=== PATIENT | female | born 1965 | race Caucasian/White ===

== ENCOUNTER → 2017-08-26 | Outpatient (REF) | payer OTHER ==
[2017-08-26 13:56] LABS: ALBUMIN 3.9 GM/DL (3.2-5.2); ALBUMIN/GLOBULIN RATIO 1.22 (1.00-1.93); ALKALINE PHOSPHATASE 131 U/L (45-117); ALT/SGPT 25 U/L (12-78); ANION GAP 14 MEQ/L (8-16); AST/SGOT 15 U/L (7-37); BILIRUBIN,TOTAL 0.6 MG/DL (0.2-1.0); BLOOD UREA NITROGEN 15 MG/DL (7-18); CALCIUM LEVEL 9.3 MG/DL (8.5-10.1); CARBON DIOXIDE LEVEL 24 MEQ/L (21-32); CHLORIDE LEVEL 103 MEQ/L (98-107); CHOLESTEROL LEVEL 141 MG/DL (<200); CREATININE FOR GFR 0.79 MG/DL (0.55-1.02); GLOMERULAR FILTRATION RATE > 60.0 (>51); GLUCOSE, FASTING 130 MG/DL (70-105); POTASSIUM SERUM 4.1 MEQ/L (3.5-5.1); SODIUM LEVEL 141 MEQ/L (136-145); TOTAL PROTEIN 7.1 GM/DL (6.4-8.2); TRIGLYCERIDES LEVEL 225 MG/DL (<150)
== END ==
LOC: M LAB REF 13:04
PROVIDERS: ATTEND Family Medicine Addiction Medicine
DX: E11.65 Type 2 diabetes mellitus with hyperglycemia (principal)

== ENCOUNTER → 2017-11-25 | Outpatient (CLI) | payer OTHER ==
[2017-11-25 10:10] LABS: ALBUMIN 3.9 GM/DL (3.2-5.2); ALBUMIN/GLOBULIN RATIO 1.56 (1.00-1.93); ALKALINE PHOSPHATASE 123 U/L (45-117); ALT/SGPT 29 U/L (12-78); ANION GAP 9 MEQ/L (8-16); AST/SGOT 16 U/L (7-37); BILIRUBIN,TOTAL 0.3 MG/DL (0.2-1.0); BLOOD UREA NITROGEN 12 MG/DL (7-18); CALCIUM LEVEL 8.4 MG/DL (8.5-10.1); CARBON DIOXIDE LEVEL 27 MEQ/L (21-32); CHLORIDE LEVEL 106 MEQ/L (98-107); CHOLESTEROL LEVEL 143 MG/DL (<200); CHOLESTEROL RISK RATIO 3.575 (<5); CREATININE FOR GFR 0.84 MG/DL (0.55-1.30); GLOMERULAR FILTRATION RATE > 60.0 (>51); GLUCOSE, FASTING 109 MG/DL (70-100); HDL CHOLESTEROL 40 MG/DL (>40); LDL CHOLESTEROL 51.8 MG/DL (<100); NON-HDL-C 103 MG/DL; SODIUM LEVEL 142 MEQ/L (136-145); TOTAL PROTEIN 6.4 GM/DL (6.4-8.2); TRIGLYCERIDES LEVEL 256 MG/DL (<150)
[2017-11-25 10:26] LABS: ESTIMATED AVERAGE GLUCOSE 166 MG/DL (60-110); HEMOGLOBIN A1c 7.4 %
== END ==
LOC: M LAB 08:53
DX: E11.65 Type 2 diabetes mellitus with hyperglycemia (principal)
CPT/HCPCS: 84443

== ENCOUNTER → 2018-01-01 | Outpatient (CLI) | payer OTHER | LOC: M RAD 08:35 | DX: M25.562 Pain in left knee (principal) | CPT/HCPCS: 73564 ==

== ENCOUNTER → 2018-04-07 | Outpatient (REF) | payer OTHER, MEDICAID ==
[2018-04-08 14:58] LABS: H. PYLORI BREATH TEST Positive (Negative)
== END ==
LOC: M LAB REF 13:17
DX: K21.9 Gastro-esophageal reflux disease without esophagitis (principal)
CPT/HCPCS: 83013

== ENCOUNTER 2018-04-17 12:33 | Outpatient (RCR) | payer OTHER | END 2018-04-28 | LOC: M PT 12:33 | DX: Z47.89 Encounter for other orthopedic aftercare (principal); M17.0 Bilateral primary osteoarthritis of knee | CPT/HCPCS: 97010 ==

== ENCOUNTER 2018-06-29 10:12 | Day surgery (SDC) | payer OTHER ==
[~2018-06-29 10:12] MED LIST: LR 1,000 ML IV
[2018-06-29] MEDS ORDERED: PROPOFOL 200 MG/20 ML VIAL As Ordered (11:13)
[2018-06-29] MEDS ORDERED: MIDAZOLAM INJ 2 MG/2 ML VIAL (J2250) As Ordered ×2 (11:13→11:35)
[2018-06-29] MEDS ORDERED: fentaNYL 100 MCG/2 ML INJECTION (J3010) As Ordered (11:14)
[2018-06-29 11:16] LABS: BEDSIDE GLUCOSE 170 MG/DL (70-105)
[2018-06-29] MEDS: LIDOCAINE W/EPINEPHRINE 1% 20ML VIAL As Ordered (11:45)
[2018-06-29] MEDS ORDERED: PERCOCET 5MG/325MG TAB PO (12:15)
[2018-06-29] MEDS ORDERED: NORCO, ANEXSIA 5/325MG TABLET (HYDROcodone/ACETAMINOPHEN) PO (12:15)
[2018-06-29] MEDS ORDERED: ONDANSETRON 4MG/2ML VIAL (J2405) IV (12:15)
[2018-06-29] MEDS ORDERED: LR 1,000 ML IV (12:15)
== END 2018-06-29 12:54 | disposition home or self-care (01) ==
LOC: M SDC 10:12
DX: L72.3 Sebaceous cyst (principal); I25.10 Atherosclerotic heart disease of native coronary artery without angina pectoris; I25.2 Old myocardial infarction; E11.9 Type 2 diabetes mellitus without complications; I10 Essential (primary) hypertension; E78.00 Pure hypercholesterolemia, unspecified; Z79.4 Long term (current) use of insulin; Z79.899 Other long term (current) drug therapy; F41.9 Anxiety disorder, unspecified; F32.9 Major depressive disorder, single episode, unspecified; F17.210 Nicotine dependence, cigarettes, uncomplicated
CPT/HCPCS: 11401

== ENCOUNTER 2018-08-30 16:06 | Emergency (ER) | payer OTHER ==
[2018-08-30] MEDS: NORCO, ANEXSIA 5/325MG TABLET (HYDROcodone/ACETAMINOPHEN) PO (16:35)
== END 2018-08-30 17:21 | disposition home or self-care (01) ==
LOC: M ED 16:06
DX: S86.911A Strain of unspecified muscle(s) and tendon(s) at lower leg level, right leg, initial encounter (principal); S76.211A Strain of adductor muscle, fascia and tendon of right thigh, initial encounter; M25.461 Effusion, right knee; W01.0XXA Fall on same level from slipping, tripping and stumbling without subsequent striking against object, initial encounter; Y92.410 Unspecified street and highway as the place of occurrence of the external cause; I10 Essential (primary) hypertension; E11.9 Type 2 diabetes mellitus without complications; F17.200 Nicotine dependence, unspecified, uncomplicated; Z79.899 Other long term (current) drug therapy; Z79.02 Long term (current) use of antithrombotics/antiplatelets; Z79.4 Long term (current) use of insulin
CPT/HCPCS: 73552

== ENCOUNTER → 2018-10-06 | Outpatient (REF) | payer OTHER ==
[~2018-10-06] MED LIST changes: +ATOR80TA59 PO; +BASA100I SQ; +CLOP75TA2 PO; +FURO40TA2 PO; +GABA-843 PO; -LR 1,000 ML IV; +METF10004 PO; +METO50TA7 PO; +NAPR-885 PO; +NORCOTAB PO; +POTA20TA6 PO
[2018-10-06 20:50] LABS: ALBUMIN 3.9 GM/DL (3.2-5.2); ALT/SGPT 43 U/L (12-78); BILIRUBIN,TOTAL 0.4 MG/DL (0.2-1.0); BLOOD UREA NITROGEN 7 MG/DL (7-18); CALCIUM LEVEL 8.8 MG/DL (8.5-10.1); CARBON DIOXIDE LEVEL 28 MEQ/L (21-32); CHLORIDE LEVEL 101 MEQ/L (98-107); CHOLESTEROL LEVEL 158 MG/DL (<200); CREATININE FOR GFR 0.94 MG/DL (0.55-1.30); GLOMERULAR FILTRATION RATE > 60.0 (>51); GLUCOSE, FASTING 245 MG/DL (70-100); HDL CHOLESTEROL 37 MG/DL (>40); LDL CHOLESTEROL 73 MG/DL (<100); NON-HDL-C 121 MG/DL; POTASSIUM SERUM 3.8 MEQ/L (3.5-5.1); SODIUM LEVEL 137 MEQ/L (136-145); THYROID STIMULATING HORMONE 0.994 uIU/ML (0.358-3.740); TOTAL PROTEIN 6.6 GM/DL (6.4-8.2); TRIGLYCERIDES LEVEL 239 MG/DL (<150)
[2018-10-06 21:02] LABS: BASO # 0.1 10^3/uL (0.0-0.2); BASO % 0.7 % (0.0-1.0); EOS # 0.5 10^3/uL (0.0-0.50); EOS % 4.6 % (0.0-3.0); HEMATOCRIT 41.9 % (36.0-47.0); HEMOGLOBIN 13.9 g/dl (12.0-15.5); LYMPH # 3.2 10^3/uL (1.5-4.5); LYMPH % 27.4 % (24.0-44.0); MEAN CORPUSCULAR HEMOGLOBIN 27.7 pg (27.0-33.0); MEAN CORPUSCULAR HGB CONC 33.2 g/dl (32.0-36.5); MEAN CORPUSCULAR VOLUME 83.5 fl (80.0-96.0); MONO # 0.5 10^3/uL (0.0-0.8); MONO % 4.7 % (0.0-5.0); NEUTROPHILS # 7.2 10^3/uL (1.8-7.7); NEUTROPHILS % 62.3 % (36.0-66.0); PLATELET COUNT, AUTOMATED 242 10^3/uL (150-450); RED BLOOD COUNT 5.02 10^6/uL (4.00-5.40); WHITE BLOOD COUNT 11.5 10^3/uL (4.0-10.0)
[2018-10-06 21:35] LABS: HEMOGLOBIN A1c 8.9 %
== END ==
LOC: M LAB REF 18:40
PROVIDERS: ATTEND Nurse Practitioner Family
DX: I25.118 Atherosclerotic heart disease of native coronary artery with other forms of angina pectoris (principal)

== ENCOUNTER 2018-11-29 13:56 | Emergency (ER) | payer OTHER ==
[~2018-11-29] VITALS: Ht 162.6 cm; Wt 102.3 kg
[2018-11-29] MEDS ORDERED: ONDANSETRON 4 MG ORAL DISINTEGRATING TAB (Q0162 PER 1MG) PO ONE (14:45)
[2018-11-29] MEDS ORDERED: IPRATROPIUM 0.5MG/ALBUTEROL 2.5MG INH SOL UD 3ML (DUONEB)(J7620) NEB ONE (14:45)
[2018-11-29] MEDS ORDERED: ACETAMINOPHEN 325 MG TAB PO ONE (14:45)
[2018-11-29 14:51] LABS: INFLUENZA A AMPLIFICATION POSITIVE (NEGATIVE); INFLUENZA B AMPLIFICATION NEGATIVE (NEGATIVE)
[2018-11-29] MEDS ORDERED: OSELTAMIVIR PHOSPHATE 75 MG CAP (TAMIFLU) PO ONE (15:00)
--- NOTE | 2018-11-29 15:22 | REP ---
Clinical: Cough and shortness of breath . Comparison: None . Technique: PA and lateral. Findings: The mediastinum and cardiac silhouette are normal. Evidence of prior sternotomy and CABG. The lung cabello are clear and without acute consolidation, effusion, or pneumothorax. The skeletal structures are intact and normal. Impression: 1. No acute cardiopulmonary process. Electronically Signed by Levon Clarke MD 11/29/2018 03:13 P
[2018-11-29] MEDS ORDERED: VENTAER INH (15:35)
[2018-11-29] MEDS ORDERED: IBUP-1022 PO (15:35)
[2018-11-29] MEDS ORDERED: OSEL75CA PO (15:35)
[2018-11-29 15:46] VITALS: BP 124/66
[2018-11-29] MEDS ORDERED: IBUPROFEN 800 MG TAB PO ONE (16:00)
== END 2018-11-29 16:04 | disposition home or self-care (01) ==
LOC: M ED 13:56
DX: J09.X2 Influenza due to identified novel influenza A virus with other respiratory manifestations (principal); E11.9 Type 2 diabetes mellitus without complications; I10 Essential (primary) hypertension; I25.10 Atherosclerotic heart disease of native coronary artery without angina pectoris; I25.2 Old myocardial infarction; Z95.1 Presence of aortocoronary bypass graft; Z79.899 Other long term (current) drug therapy; Z79.84 Long term (current) use of oral hypoglycemic drugs; F17.210 Nicotine dependence, cigarettes, uncomplicated
CPT/HCPCS: 71046; 87502; 94640; 99284; Q0162

== ENCOUNTER → 2019-02-02 | Outpatient (REF) | payer OTHER ==
[~2019-02-02] MED LIST changes: +HYDR-3715 PO; +IBUP-1022 PO; -NORCOTAB PO; +OSEL75CA PO; +VENTAER INH
[2019-02-02 14:19] LABS: BASO % 0.4 % (0.0-1.0); EOS # 0.4 10^3/uL (0.0-0.50); EOS % 5.4 % (0.0-3.0); HEMATOCRIT 40.2 % (36.0-47.0); HEMOGLOBIN 13.2 g/dl (12.0-15.5); LYMPH % 29.6 % (24.0-44.0); MEAN CORPUSCULAR HEMOGLOBIN 28.1 pg (27.0-33.0); MEAN CORPUSCULAR HGB CONC 32.8 g/dl (32.0-36.5); MEAN CORPUSCULAR VOLUME 85.7 fl (80.0-96.0); MONO # 0.4 10^3/uL (0.0-0.8); MONO % 5.8 % (0.0-5.0); NEUTROPHILS # 4.1 10^3/uL (1.8-7.7); NEUTROPHILS % 58.7 % (36.0-66.0); PLATELET COUNT, AUTOMATED 186 10^3/uL (150-450); RED BLOOD COUNT 4.69 10^6/uL (4.00-5.40); WHITE BLOOD COUNT 6.9 10^3/uL (4.0-10.0)
[2019-02-02 14:58] LABS: ALBUMIN 3.8 GM/DL (3.2-5.2); ALT/SGPT 37 U/L (12-78); BILIRUBIN,TOTAL 0.6 MG/DL (0.2-1.0); BLOOD UREA NITROGEN 11 MG/DL (7-18); CALCIUM LEVEL 8.4 MG/DL (8.5-10.1); CARBON DIOXIDE LEVEL 25 MEQ/L (21-32); CHLORIDE LEVEL 105 MEQ/L (98-107); CHOLESTEROL LEVEL 154 MG/DL (<200); CHOLESTEROL RISK RATIO 4.162 (<5); CREATININE FOR GFR 0.84 MG/DL (0.55-1.30); GLOMERULAR FILTRATION RATE > 60.0 (>51); GLUCOSE, FASTING 197 MG/DL (70-100); HDL CHOLESTEROL 37 MG/DL (>40); HEMOGLOBIN A1c 9.4 %; LDL CHOLESTEROL 66 MG/DL (<100); NON-HDL-C 117 MG/DL; POTASSIUM SERUM 3.7 MEQ/L (3.5-5.1); SODIUM LEVEL 138 MEQ/L (136-145); TOTAL PROTEIN 6.7 GM/DL (6.4-8.2); TRIGLYCERIDES LEVEL 255 MG/DL (<150)
== END ==
LOC: M LAB REF 12:37
PROVIDERS: ATTEND Nurse Practitioner Family
DX: I25.118 Atherosclerotic heart disease of native coronary artery with other forms of angina pectoris (principal); E11.65 Type 2 diabetes mellitus with hyperglycemia; Z13.9 Encounter for screening, unspecified

== ENCOUNTER 2019-04-26 13:58 | Emergency (ER) | payer OTHER ==
[~2019-04-26] VITALS: Ht 162.6 cm; Wt 102.3 kg
[2019-04-26 14:53] LABS: BASO % 0.4 % (0.0-1.0); EOS # 0.4 10^3/uL (0.0-0.50); EOS % 4.1 % (0.0-3.0); HEMATOCRIT 41.6 % (36.0-47.0); HEMOGLOBIN 13.9 g/dl (12.0-15.5); LYMPH # 2.5 10^3/uL (1.5-4.5); LYMPH % 25.8 % (24.0-44.0); MEAN CORPUSCULAR HEMOGLOBIN 27.5 pg (27.0-33.0); MEAN CORPUSCULAR HGB CONC 33.4 g/dl (32.0-36.5); MEAN CORPUSCULAR VOLUME 82.2 fl (80.0-96.0); MONO # 0.5 10^3/uL (0.0-0.8); MONO % 5.6 % (0.0-5.0); NEUTROPHILS # 6.1 10^3/uL (1.8-7.7); NEUTROPHILS % 63.8 % (36.0-66.0); PLATELET COUNT, AUTOMATED 187 10^3/uL (150-450); RED BLOOD COUNT 5.06 10^6/uL (4.00-5.40); WHITE BLOOD COUNT 9.6 10^3/uL (4.0-10.0)
[2019-04-26 15:30] VITALS: BP 103/55
[2019-04-26 15:33] LABS: ALBUMIN 3.7 GM/DL (3.2-5.2); ALT/SGPT 29 U/L (12-78); BILIRUBIN,DIRECT < 0.1 MG/DL (0.0-0.2); BILIRUBIN,TOTAL 0.5 MG/DL (0.2-1.0); BLOOD UREA NITROGEN 16 MG/DL (7-18); CALCIUM LEVEL 9.1 MG/DL (8.5-10.1); CARBON DIOXIDE LEVEL 31 MEQ/L (21-32); CHLORIDE LEVEL 103 MEQ/L (98-107); CREATININE FOR GFR 0.99 MG/DL (0.55-1.30); GLOMERULAR FILTRATION RATE > 60.0 (>51); GLUCOSE, FASTING 169 MG/DL (70-100); LIPASE 164 U/L (73-393); POTASSIUM SERUM 3.5 MEQ/L (3.5-5.1); SODIUM LEVEL 140 MEQ/L (136-145); TOTAL PROTEIN 6.9 GM/DL (6.4-8.2)
[2019-04-26] MEDS ORDERED: DICYCLOMINE INJ 20MG/2ML (J0500) IM ONE (16:00)
--- NOTE | 2019-04-26 16:48 | REP ---
Clinical: Epigastric and abdominal pain. Technique: Upright view of the chest with supine and upright views of the abdomen and pelvis. Findings: Frontal upright view of the chest demonstrates no acute cardiopulmonary process or free air below the diaphragm to suspect pneumoperitoneum. Evidence of prior sternotomy and CABG noted. Supine and upright views of the abdomen and pelvis demonstrate nonspecific bowel gas pattern without obstruction or perforation. No organomegaly. No abnormal calcifications. Impression: Nonspecific bowel gas pattern. Electronically Signed by Levon Clarke MD 04/26/2019 04:39 P
[2019-04-26] MEDS ORDERED: DICY10CA13 PO (16:58)
--- NOTE | 2019-04-26 20:25 | ECGEPIP ---
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
[2019-05-13] MEDS ORDERED: HYDR1TAB33 PO (09:31)
== END 2019-04-26 18:28 | disposition home or self-care (01) ==
LOC: M ED 13:58 → EDBD 13:58 → M ED 18:28
DX: E11.43 Type 2 diabetes mellitus with diabetic autonomic (poly)neuropathy (principal); I10 Essential (primary) hypertension; I25.2 Old myocardial infarction; Z79.899 Other long term (current) drug therapy; Z79.4 Long term (current) use of insulin; F17.210 Nicotine dependence, cigarettes, uncomplicated
CPT/HCPCS: 36415; 74021; 80048; 80076; 83690; 85025; 93005; 96372; 99284; J0500

== ENCOUNTER → 2019-05-10 | Outpatient (REF) | payer OTHER, MEDICAID ==
[~2019-05-10] MED LIST changes: +DICY10CA13 PO; +HYDR1TAB33 PO
[2019-05-10 13:45] LABS: BASO # 0.1 10^3/uL (0.0-0.2); BASO % 0.8 % (0.0-1.0); EOS # 0.5 10^3/uL (0.0-0.50); EOS % 6.1 % (0.0-3.0); HEMATOCRIT 42.9 % (36.0-47.0); HEMOGLOBIN 13.9 g/dl (12.0-15.5); LYMPH # 2.2 10^3/uL (1.5-4.5); LYMPH % 27.8 % (24.0-44.0); MEAN CORPUSCULAR HEMOGLOBIN 27.9 pg (27.0-33.0); MEAN CORPUSCULAR HGB CONC 32.4 g/dl (32.0-36.5); MEAN CORPUSCULAR VOLUME 86.1 fl (80.0-96.0); MONO # 0.5 10^3/uL (0.0-0.8); MONO % 5.8 % (0.0-5.0); NEUTROPHILS # 4.6 10^3/uL (1.8-7.7); NEUTROPHILS % 59.2 % (36.0-66.0); PLATELET COUNT, AUTOMATED 198 10^3/uL (150-450); RED BLOOD COUNT 4.98 10^6/uL (4.00-5.40); WHITE BLOOD COUNT 7.8 10^3/uL (4.0-10.0)
[2019-05-10 14:07] LABS: ALBUMIN 3.9 GM/DL (3.2-5.2); ALT/SGPT 39 U/L (12-78); BILIRUBIN,TOTAL 0.3 MG/DL (0.2-1.0); BLOOD UREA NITROGEN 11 MG/DL (7-18); CARBON DIOXIDE LEVEL 26 MEQ/L (21-32); CHLORIDE LEVEL 107 MEQ/L (98-107); CHOLESTEROL LEVEL 155 MG/DL (<200); CHOLESTEROL RISK RATIO 3.974 (<5); CREATININE FOR GFR 0.88 MG/DL (0.55-1.30); GLOMERULAR FILTRATION RATE > 60.0 (>51); GLUCOSE, FASTING 189 MG/DL (70-100); HDL CHOLESTEROL 39 MG/DL (>40); LDL CHOLESTEROL 69 MG/DL (<100); NON-HDL-C 116 MG/DL; SODIUM LEVEL 141 MEQ/L (136-145); TOTAL PROTEIN 6.7 GM/DL (6.4-8.2); TRIGLYCERIDES LEVEL 233 MG/DL (<150)
== END ==
LOC: M LAB REF 12:36
PROVIDERS: ATTEND Nurse Practitioner Family
DX: I25.118 Atherosclerotic heart disease of native coronary artery with other forms of angina pectoris (principal)

== ENCOUNTER → 2019-09-08 | Outpatient (REF) | payer OTHER, MEDICAID ==
[2019-09-08 18:29] LABS: BASO # 0.1 10^3/uL (0.0-0.2); BASO % 0.7 % (0.0-1.0); EOS # 0.4 10^3/uL (0.0-0.5); EOS % 4.6 % (0.0-3.0); HEMATOCRIT 45.6 % (36.0-47.0); HEMOGLOBIN 14.5 g/dl (12.0-15.5); LYMPH # 2.5 10^3/uL (1.5-5.0); LYMPH % 28.7 % (24.0-44.0); MEAN CORPUSCULAR HEMOGLOBIN 27.1 pg (27.0-33.0); MEAN CORPUSCULAR HGB CONC 31.8 g/dl (32.0-36.5); MEAN CORPUSCULAR VOLUME 85.1 fl (80.0-96.0); MONO # 0.5 10^3/uL (0.0-0.8); NEUTROPHILS # 5.2 10^3/uL (1.5-8.5); NEUTROPHILS % 59.7 % (36.0-66.0); PLATELET COUNT, AUTOMATED 171 10^3/uL (150-450); RED BLOOD COUNT 5.36 10^6/uL (4.00-5.40); WHITE BLOOD COUNT 8.7 10^3/uL (4.0-10.0)
[2019-09-08 18:37] LABS: AMORPHOUS SEDIMENT LARGE (NEGATIVE); APPEARANCE, URINE TURBID (CLEAR); BACTERIA, URINE AUTO 1+ (NEGATIVE); BILIRUBIN, URINE AUTO NEGATIVE (NEGATIVE); BLOOD, URINE BLOOD 1+ (NEGATIVE); COLOR, URINE AMBER (YELLOW); GLUCOSE, URINE (UA) AUTO NEGATIVE (NEGATIVE); KETONE, URINE AUTO TRACE mg/dL (NEGATIVE); LEUKOCYTE ESTERASE, URINE AUTO TRACE (NEGATIVE); MUCUS, URINE SMALL (NEGATIVE); NITRITE, URINE AUTO NEGATIVE (NEGATIVE); PROTEIN, URINE AUTO NEGATIVE (NEGATIVE); RBC, URINE AUTO 2 /HPF (0-3); SPECIFIC GRAVITY URINE AUTO 1.024 (1.002-1.035); SQUAMOUS EPITHELIAL CELL UR AU 34 /HPF (0-6); UROBILINOGEN, URINE AUTO 0.2 mg/dL (0.0-2.0); WBC, URINE AUTO 8 /HPF (0-3)
[2019-09-08 20:04] LABS: BLOOD UREA NITROGEN 11 MG/DL (7-18); CREATININE FOR GFR 0.84 MG/DL (0.55-1.30); GLOMERULAR FILTRATION RATE > 60.0 (>51); GLUCOSE, FASTING 189 MG/DL (70-100)
[2019-09-08 20:05] LABS: ALT/SGPT 46 U/L (12-78); BILIRUBIN,TOTAL 0.5 MG/DL (0.2-1.0); CALCIUM LEVEL 9.3 MG/DL (8.5-10.1); CARBON DIOXIDE LEVEL 25 MEQ/L (21-32); CHLORIDE LEVEL 105 MEQ/L (98-107); CHOLESTEROL LEVEL 162 MG/DL (<200); CHOLESTEROL RISK RATIO 4.764 (<5); HDL CHOLESTEROL 34 MG/DL (>40); NON-HDL-C 128 MG/DL; POTASSIUM SERUM 3.9 MEQ/L (3.5-5.1); SODIUM LEVEL 139 MEQ/L (136-145); TRIGLYCERIDES LEVEL 290 MG/DL (<150)
[2019-09-08 20:06] LABS: TOTAL PROTEIN 6.7 GM/DL (6.4-8.2)
[2019-09-09 03:23] LABS: HEMOGLOBIN A1c 8.4 %
[2019-09-09 11:53] LABS: TOTAL 25(OH) VITAMIN D 28.2 NG/ML (30.0-100.0)
== END ==
LOC: M LAB REF 16:33
PROVIDERS: ATTEND Nurse Practitioner Family
DX: Z13.9 Encounter for screening, unspecified (principal); M25.561 Pain in right knee; M54.89 Other dorsalgia; Z72.0 Tobacco use; E66.09 Other obesity due to excess calories; E11.65 Type 2 diabetes mellitus with hyperglycemia

== ENCOUNTER → 2019-11-12 | Outpatient (REF) | payer OTHER ==
[2019-11-12 17:33] LABS: BLOOD UREA NITROGEN 13 MG/DL (7-18); CALCIUM LEVEL 8.9 MG/DL (8.5-10.1); CARBON DIOXIDE LEVEL 30 MEQ/L (21-32); CHLORIDE LEVEL 104 MEQ/L (98-107); CHOLESTEROL LEVEL 165 MG/DL (<200); GLOMERULAR FILTRATION RATE > 60.0 (>51); GLUCOSE, FASTING 163 MG/DL (70-100); HDL CHOLESTEROL 30 MG/DL (>40); LDL CHOLESTEROL 62 MG/DL (<100); NON-HDL-C 135 MG/DL; POTASSIUM SERUM 3.9 MEQ/L (3.5-5.1); SODIUM LEVEL 140 MEQ/L (136-145); TRIGLYCERIDES LEVEL 366 MG/DL (<150)
[2019-11-12 17:34] LABS: HEMOGLOBIN A1c 7.9 %
[2019-11-12 17:40] LABS: MALB URINE SIEMENS 19.5 MG/L; MAU/CREAT RATIO 8.8 MCG/MG (0.0-30.0)
[2019-11-12 18:48] LABS: HIV 1&2 SCREEN CENTAUR NEGATIVE (NEGATIVE)
[2019-11-15 10:47] LABS: HEPATITIS B SURFACE ANTIBODY NEGATIVE (POSITIVE)
[2019-11-15 11:26] LABS: HEPATITIS C VIRUS ABY INDEX < 0.0 INDEX (<0.8)
== END ==
LOC: M SFHCPLAZ 14:48
DX: Z11.4 Encounter for screening for human immunodeficiency virus [HIV] (principal); Z11.59 Encounter for screening for other viral diseases; E11.40 Type 2 diabetes mellitus with diabetic neuropathy, unspecified; Z95.1 Presence of aortocoronary bypass graft; F17.200 Nicotine dependence, unspecified, uncomplicated

== ENCOUNTER 2019-12-01 09:22 | Day surgery (SDC) | payer MEDICAID, OTHER ==
[~2019-12-01] VITALS: Ht 162.6 cm; Wt 95.3 kg
[~2019-12-01 09:22] MED LIST changes: +ATOR40TA75 PO; +NS 1,000 ML IV ONE
[2019-12-01] MEDS ORDERED: propofoL 200 MG/20 ML VIAL As Ordered ONE ×2 (10:30→11:35)
[2019-12-01] MEDS ORDERED: LIDOCAINE 2% INJ 100 MG/5 ML SDV (FOR ANES.) As Ordered ONE (10:30)
[2019-12-01] MEDS ORDERED: fentaNYL 100 MCG/2 ML INJECTION (J3010) As Ordered ONE (11:01)
--- NOTE | 2019-12-01 11:55 | ROOR ---
Patient Name: Natalie Mazariegos Procedure Date: 12/01/2019 11:12 AM Date of : 1965 Age: 54 Room: [facility] Gender: Female Note Status: Finalized Procedure: Upper GI endoscopy Indications: Suspected gastro-esophageal reflux disease Providers: Jesse Carnes DO Referring MD: Josselyn DOWNEY DO Requesting Provider: Medicines: Propofol per Anesthesia Complications: No immediate complications. Procedure: Pre-Anesthesia Assessment: - Prior to the procedure, a History and Physical was performed, and patient medications and allergies were reviewed. The patient is competent. The risks and benefits of the procedure and the sedation options and risks were discussed with the patient. All questions were answered and informed consent was obtained. Patient identification and proposed procedure were verified by the physician, the nurse, the anesthesiologist and the dental equipment technician in the endoscopy suite. Mental Status Examination: alert and oriented. Airway Examination: normal oropharyngeal airway and neck mobility. Respiratory Examination: clear to auscultation. CV Examination: normal. Prophylactic Antibiotics: The patient does not require prophylactic antibiotics. Prior Anticoagulants: The patient has taken Plavix (clopidogrel), last dose was 5 days prior to procedure. ASA Grade Assessment: III - A patient with severe systemic disease. After reviewing the risks and benefits, the patient was deemed in satisfactory condition to undergo the procedure. The anesthesia plan was to use monitored anesthesia care (MAC). Immediately prior to administration of medications, the patient was re-assessed for adequacy to receive sedatives. The heart rate, respiratory rate, oxygen saturations, blood pressure, adequacy of pulmonary ventilation, and response to care were monitored throughout the procedure. The physical status of the patient was re-assessed after the procedure. The Endoscope was introduced through the mouth, and advanced to the second part of duodenum. The upper GI endoscopy was accomplished without difficulty. The patient tolerated the procedure well. Findings: LA Grade A (one or more mucosal breaks less than 5 mm, not extending between tops of 2 mucosal folds) esophagitis with no bleeding was found. Biopsies were taken with a cold forceps for histology. Estimated blood loss was minimal. Localized mild inflammation characterized by erythema and friability was found at the pylorus. Biopsies were taken with a cold forceps for Helicobacter pylori testing. Estimated blood loss was minimal. Impression: - LA Grade A esophagitis. Biopsied. - Gastritis. Biopsied. Recommendation: - Patient has a contact number available for emergencies. The signs and symptoms of potential delayed complications were discussed with the patient. Return to normal activities tomorrow. Written discharge instructions were provided to the patient. - Return to my office as previously scheduled. - Await pathology results. Jesse Carnes DO 12/01/2019 11:55:26 AM Electronically signed by Jesse Carnes DO Number of Addenda: 0 Note Initiated On: 12/01/2019 11:12 AM Estimated Blood Loss: Estimated blood loss was minimal.
--- NOTE | 2019-12-01 12:01 | ROOR ---
Patient Name: Natalie Mazariegos Procedure Date: 12/01/2019 11:13 AM Date of : 1965 Age: 54 Room: [facility] Gender: Female Note Status: Finalized Procedure: Colonoscopy Indications: High risk colon cancer surveillance: Personal history of colonic polyps Providers: Jesse Carnes DO Referring MD: Josselyn DOWNEY DO Requesting Provider: Medicines: Propofol per Anesthesia Complications: No immediate complications. Procedure: Pre-Anesthesia Assessment: - Prior to the procedure, a History and Physical was performed, and patient medications and allergies were reviewed. The patient is competent. The risks and benefits of the procedure and the sedation options and risks were discussed with the patient. All questions were answered and informed consent was obtained. Patient identification and proposed procedure were verified by the physician, the nurse, the anesthesiologist and the p 3 armament/ordnance ima technician in the endoscopy suite. Mental Status Examination: alert and oriented. Airway Examination: normal oropharyngeal airway and neck mobility. Respiratory Examination: clear to auscultation. CV Examination: normal. Prophylactic Antibiotics: The patient does not require prophylactic antibiotics. Prior Anticoagulants: The patient has taken Plavix (clopidogrel), last dose was 5 days prior to procedure. ASA Grade Assessment: III - A patient with severe systemic disease. After reviewing the risks and benefits, the patient was deemed in satisfactory condition to undergo the procedure. The anesthesia plan was to use monitored anesthesia care (MAC). Immediately prior to administration of medications, the patient was re-assessed for adequacy to receive sedatives. The heart rate, respiratory rate, oxygen saturations, blood pressure, adequacy of pulmonary ventilation, and response to care were monitored throughout the procedure. The physical status of the patient was re-assessed after the procedure. The Colonoscope was introduced through the anus and advanced to the cecum, identified by appendiceal orifice and ileocecal valve. The colonoscopy was performed without difficulty. The patient tolerated the procedure well. Findings: Five hyperplastic polyps were found in the ascending colon and cecum. The polyps were 3 to 9 mm in size. These polyps were removed with a jumbo cold forceps. Resection and retrieval were complete. Estimated blood loss was minimal. Multiple hyperplastic polyps were found in the sigmoid colon. The polyps were 3 to 15 mm in size. These polyps were removed with a hot snare. Resection and retrieval were complete. Estimated blood loss was minimal. The exam was otherwise without abnormality on direct and retroflexion views. Impression: - Five 3 to 9 mm polyps in the ascending colon and in the cecum, removed with a jumbo cold forceps. Resected and retrieved. - Multiple 3 to 15 mm polyps in the sigmoid colon, removed with a hot snare. Resected and retrieved. - The examination was otherwise normal on direct and retroflexion views. Recommendation: - Patient has a contact number available for emergencies. The signs and symptoms of potential delayed complications were discussed with the patient. Return to normal activities tomorrow. Written discharge instructions were provided to the patient. - Repeat colonoscopy in 3 years for surveillance of multiple polyps. - Return to my office as previously scheduled. Jesse Carnes DO 12/01/2019 12:00:54 PM Electronically signed by Jesse Carnes DO Number of Addenda: 0 Note Initiated On: 12/01/2019 11:13 AM Estimated Blood Loss: Estimated blood loss was minimal.
[2019-12-01 12:15] VITALS: BP 165/87
== END 2019-12-01 13:25 | disposition home or self-care (01) ==
LOC: M OPP 09:22
PROVIDERS: ATTEND Surgery
DX: Z12.11 Encounter for screening for malignant neoplasm of colon (principal); Z86.010 Personal history of colon polyps; D12.0 Benign neoplasm of cecum; D12.2 Benign neoplasm of ascending colon; D12.5 Benign neoplasm of sigmoid colon; K21.9 Gastro-esophageal reflux disease without esophagitis; K20.9 Esophagitis, unspecified; K29.70 Gastritis, unspecified, without bleeding
CPT/HCPCS: 43239; 45380; 45385; 88305; J3010

== ENCOUNTER 2020-03-22 22:01 | Emergency (ER) | payer OTHER ==
[~2020-03-22 22:01] MED LIST changes: -NS 1,000 ML IV ONE
[2020-03-22] MEDS ORDERED: ASPIRIN 325 MG TAB PO ONE (22:30)
[2020-03-22 22:55] LABS: BASO # 0.1 10^3/uL (0.0-0.2); BASO % 0.8 % (0.0-1.0); EOS # 0.6 10^3/uL (0.0-0.5); EOS % 6.1 % (0.0-3.0); LYMPH # 3.5 10^3/uL (1.5-5.0); LYMPH % 37.9 % (24.0-44.0); MEAN CORPUSCULAR HEMOGLOBIN 27.4 pg (27.0-33.0); MEAN CORPUSCULAR HGB CONC 32.5 g/dl (32.0-36.5); MEAN CORPUSCULAR VOLUME 84.4 fl (80.0-96.0); MONO # 0.6 10^3/uL (0.0-0.8); MONO % 6.3 % (0.0-5.0); NEUTROPHILS # 4.5 10^3/uL (1.5-8.5); NEUTROPHILS % 48.7 % (36.0-66.0); PLATELET COUNT, AUTOMATED 191 10^3/uL (150-450); RED BLOOD COUNT 4.74 10^6/uL (4.00-5.40); WHITE BLOOD COUNT 9.2 10^3/uL (4.0-10.0)
[2020-03-22 23:06] LABS: INR 1.05; PROTHROMBIN TIME 13.4 SECONDS (11.8-14.0)
[2020-03-22 23:31] LABS: ALBUMIN 3.5 GM/DL (3.2-5.2); ALT/SGPT 38 U/L (12-78); BILIRUBIN,DIRECT < 0.1 MG/DL (0.0-0.2); BILIRUBIN,TOTAL 0.3 MG/DL (0.2-1.0); LIPASE 184 U/L (73-393); TOTAL PROTEIN 6.5 GM/DL (6.4-8.2)
[2020-03-22] MEDS ORDERED: ISOVUE-370 76% 100ML VIAL As Ordered ONE (23:54)
--- NOTE | 2020-03-23 00:19 | REPVR ---
PROCEDURE INFORMATION: Exam: CT Angiography Chest With Contrast Exam date and time: 03/22/2020 11:46 PM Age: 55 years old Clinical indication: Chest pain; Type not specified; Additional info: Cp TECHNIQUE: Imaging protocol: Computed tomographic angiography of the chest with intravenous contrast. 3D rendering: MIP and/or 3D reconstructed images were created by the technologist. Radiation optimization: All CT scans at this facility use at least one of these dose optimization techniques: automated exposure control; mA and/or kV adjustment per patient size (includes targeted exams where dose is matched to clinical indication); or iterative reconstruction. Contrast material: ISO; Contrast volume: 75 ml; Contrast route: INTRAVENOUS (IV); COMPARISON: CR PORTABLE CHEST X-RAY 03/22/2020 10:40 PM FINDINGS: Pulmonary arteries: The main pulmonary artery measures 24 mm. No pulmonary embolism is identified. Aorta: The ascending thoracic aorta measures 33 mm. Lungs: Minimal patchy ground-glass infiltrates and atelectasis, greatest in the lower lobes. Pleural space: Unremarkable. No pneumothorax. No pleural effusion. Heart: Status post sternotomy and CABG. Lymph nodes: Unremarkable. No enlarged lymph nodes. Bones/joints: Unremarkable. No acute fracture. Soft tissues: Unremarkable. IMPRESSION: 1. Minimal patchy ground-glass infiltrates and atelectasis, greatest in the lower lobes. 2. Otherwise negative CTA chest. No pulmonary embolism is identified. Electronically signed by: Ciro Irwin On 03/23/2020 00:19:23 AM
[2020-03-23] MEDS ORDERED: PROT1TAB2 PO (03:50)
[2020-03-23 04:12] VITALS: BP 141/76
--- NOTE | 2020-03-23 07:18 | ECGEPIP ---
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
--- NOTE | 2020-03-23 07:29 | ECGEPIP ---
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
--- NOTE | 2020-03-23 08:51 | REP ---
PORTABLE CHEST X-RAY: SINGLE VIEW. HISTORY: Chest pain. Comparison chest x-ray: April 26, 2019 FINDINGS: Monitoring electrodes overlie the chest. Median sternotomy wires are present. The lungs are somewhat under inflated compared to the prior study but free of focal infiltrate. There is no evidence of pleural effusion. Pulmonary vasculature is somewhat cephalized. IMPRESSION: Lung cabello under aerated compared to prior study. No definite infiltrate. Mild cephalization. Prior sternotomy. Electronically Signed by Romulo Evangelista MD 03/23/2020 08:55 A
== END 2020-03-23 04:13 | disposition home or self-care (01) ==
LOC: M ED 22:01
DX: R07.9 Chest pain, unspecified (principal); K21.9 Gastro-esophageal reflux disease without esophagitis; E11.9 Type 2 diabetes mellitus without complications; I11.9 Hypertensive heart disease without heart failure; R91.8 Other nonspecific abnormal finding of lung field; Z95.1 Presence of aortocoronary bypass graft; F17.200 Nicotine dependence, unspecified, uncomplicated; Z79.51 Long term (current) use of inhaled steroids; Z79.84 Long term (current) use of oral hypoglycemic drugs; Z79.899 Other long term (current) drug therapy
CPT/HCPCS: 36415; 71045; 71275; 80047; 80076; 83690; 85025; 85610; 93005; 93041; 94760; 99285; Q9967

== ENCOUNTER 2020-04-08 02:59 | Emergency (ER) | payer OTHER ==
[~2020-04-08] VITALS: Ht 162.6 cm; Wt 104.5 kg
[~2020-04-08 02:59] MED LIST changes: +PROT1TAB2 PO
[2020-04-08] MEDS ORDERED: NS 1,000 ML IV ONE (05:45)
[2020-04-08] MEDS ORDERED: MORPHINE 4 MG/ML 1ML VIAL/SYRINGE (J2270) IV ONE (05:45)
[2020-04-08 06:21] LABS: BASO # 0.1 10^3/uL (0.0-0.2); BASO % 0.5 % (0.0-1.0); EOS # 0.5 10^3/uL (0.0-0.5); EOS % 5.9 % (0.0-3.0); HEMATOCRIT 41.7 % (36.0-47.0); HEMOGLOBIN 13.6 g/dl (12.0-15.5); LYMPH % 32.6 % (24.0-44.0); MEAN CORPUSCULAR HEMOGLOBIN 27.3 pg (27.0-33.0); MEAN CORPUSCULAR HGB CONC 32.6 g/dl (32.0-36.5); MEAN CORPUSCULAR VOLUME 83.7 fl (80.0-96.0); MONO # 0.6 10^3/uL (0.0-0.8); MONO % 6.5 % (0.0-5.0); NEUTROPHILS % 54.2 % (36.0-66.0); PLATELET COUNT, AUTOMATED 185 10^3/uL (150-450); RED BLOOD COUNT 4.98 10^6/uL (4.00-5.40); WHITE BLOOD COUNT 9.2 10^3/uL (4.0-10.0)
[2020-04-08 06:33] LABS: APPEARANCE, URINE HAZY (CLEAR); BACTERIA, URINE AUTO 2+ (NEGATIVE); BILIRUBIN, URINE AUTO NEGATIVE (NEGATIVE); BLOOD, URINE BLOOD 2+ (NEGATIVE); COLOR, URINE STRAW (YELLOW); GLUCOSE, URINE (UA) AUTO NEGATIVE (NEGATIVE); KETONE, URINE AUTO NEGATIVE (NEGATIVE); LEUKOCYTE ESTERASE, URINE AUTO TRACE (NEGATIVE); MUCUS, URINE SMALL (NEGATIVE); NITRITE, URINE AUTO NEGATIVE (NEGATIVE); PROTEIN, URINE AUTO NEGATIVE (NEGATIVE); RBC, URINE AUTO 5 /HPF (0-3); SPECIFIC GRAVITY URINE AUTO 1.002 (1.002-1.035); SQUAMOUS EPITHELIAL CELL UR AU 3 /HPF (0-6); UROBILINOGEN, URINE AUTO 0.2 mg/dL (0.0-2.0); WBC, URINE AUTO 1 /HPF (0-3)
[2020-04-08 07:03] LABS: ALBUMIN 3.9 GM/DL (3.2-5.2); ALT/SGPT 35 U/L (12-78); BILIRUBIN,DIRECT < 0.1 MG/DL (0.0-0.2); BILIRUBIN,TOTAL 0.5 MG/DL (0.2-1.0); BLOOD UREA NITROGEN 13 MG/DL (7-18); CALCIUM LEVEL 9.1 MG/DL (8.5-10.1); CARBON DIOXIDE LEVEL 24 MEQ/L (21-32); CHLORIDE LEVEL 110 MEQ/L (98-107); GLOMERULAR FILTRATION RATE > 60.0 (>51); GLUCOSE, FASTING 167 MG/DL (70-100); LIPASE 157 U/L (73-393); SODIUM LEVEL 140 MEQ/L (136-145); TOTAL PROTEIN 6.9 GM/DL (6.4-8.2)
[2020-04-08] MEDS ORDERED: MORPHINE 2 MG/ML 1ML VIAL (J2270) IV PRN (07:30)
--- NOTE | 2020-04-08 07:57 | REPVR ---
PROCEDURE INFORMATION: Exam: CT Abdomen And Pelvis Without Contrast Exam date and time: 04/08/2020 6:48 AM Age: 55 years old Clinical indication: Abdominal pain; Flank; Right; Additional info: R colic TECHNIQUE: Imaging protocol: Computed tomography of the abdomen and pelvis without contrast. Radiation optimization: All CT scans at this facility use at least one of these dose optimization techniques: automated exposure control; mA and/or kV adjustment per patient size (includes targeted exams where dose is matched to clinical indication); or iterative reconstruction. COMPARISON: CR Abdomen,Flat Upright,PA CHEST 04/26/2019 4:12 PM FINDINGS: Lungs: Mild bilateral lower lobe and lingular ground-glass infiltrates and minimal fibro-atelectatic change. Liver: Normal. No mass. Gallbladder and bile ducts: The gallbladder is somewhat contracted with no stones. Pancreas: Normal. No ductal dilation. Spleen: Normal. No splenomegaly. Adrenals: Normal. No mass. Kidneys and ureters: Mild malrotation of the right kidney. Stomach and bowel: Minimal colonic diverticulosis without diverticulitis. Appendix: A normal appendix is seen. Intraperitoneal space: Unremarkable. No free air. No significant fluid collection. Vasculature: There is mild calcification of the abdominal aorta with extension into the iliac arteries. Lymph nodes: Unremarkable. No enlarged lymph nodes. Bladder: Unremarkable as visualized. Reproductive: Unremarkable as visualized. Bones/joints: Status post sternotomy. Lower lumbar facet arthropathy with anterolisthesis of L4 relative to L5 with ankylosis of L5-S1. Soft tissues: Unremarkable. IMPRESSION: 1. Mild bilateral lower lobe and lingular ground-glass infiltrates with minimal fibro-atelectatic change. 2. Minimal colonic diverticulosis without diverticulitis. 3. Otherwise negative CT abdomen/pelvis. No renal or ureteral calculi are evident and there is no evidence of obstructive uropathy. Electronically signed by: Ciro Irwin On 04/08/2020 07:57:09 AM
[2020-04-08] MEDS ORDERED: LIDO5DIS41 TD (08:10)
[2020-04-08] MEDS ORDERED: CYCL5TAB PO (08:10)
[2020-04-08 08:46] VITALS: BP 170/92
== END 2020-04-08 08:47 | disposition home or self-care (01) ==
LOC: M ED 02:59
DX: R10.9 Unspecified abdominal pain (principal); M62.830 Muscle spasm of back; R91.8 Other nonspecific abnormal finding of lung field; E11.9 Type 2 diabetes mellitus without complications; I10 Essential (primary) hypertension; J45.909 Unspecified asthma, uncomplicated; K21.9 Gastro-esophageal reflux disease without esophagitis; K57.30 Diverticulosis of large intestine without perforation or abscess without bleeding; E78.5 Hyperlipidemia, unspecified; Z79.4 Long term (current) use of insulin; Z79.51 Long term (current) use of inhaled steroids; Z79.899 Other long term (current) drug therapy
CPT/HCPCS: 74176; 80048; 80076; 81001; 83690; 85025; 96361; 96374; 96376; 99284; J2270

== ENCOUNTER 2020-04-12 11:54 | Emergency (ER) | payer OTHER ==
[~2020-04-12] VITALS: Ht 162.6 cm; Wt 98.2 kg
[~2020-04-12 11:54] MED LIST changes: +CYCL5TAB PO; +LIDO5DIS41 TD
[2020-04-12 12:56] LABS: BASO # 0.1 10^3/uL (0.0-0.2); BASO % 0.6 % (0.0-1.0); EOS # 0.4 10^3/uL (0.0-0.5); EOS % 4.4 % (0.0-3.0); HEMATOCRIT 41.2 % (36.0-47.0); HEMOGLOBIN 13.6 g/dl (12.0-15.5); LYMPH # 1.7 10^3/uL (1.5-5.0); LYMPH % 17.7 % (24.0-44.0); MEAN CORPUSCULAR HEMOGLOBIN 27.9 pg (27.0-33.0); MEAN CORPUSCULAR VOLUME 84.4 fl (80.0-96.0); MONO # 0.6 10^3/uL (0.0-0.8); MONO % 5.7 % (0.0-5.0); NEUTROPHILS % 71.4 % (36.0-66.0); PLATELET COUNT, AUTOMATED 176 10^3/uL (150-450); RED BLOOD COUNT 4.88 10^6/uL (4.00-5.40); WHITE BLOOD COUNT 9.8 10^3/uL (4.0-10.0)
[2020-04-12 13:21] LABS: INR 1.08; PARTIAL THROMBOPLASTIN TIME 25.5 SECONDS (25.0-38.4); PROTHROMBIN TIME 13.7 SECONDS (11.8-14.0)
[2020-04-12 13:34] LABS: ALBUMIN 3.8 GM/DL (3.2-5.2); ALT/SGPT 32 U/L (12-78); BILIRUBIN,DIRECT < 0.1 MG/DL (0.0-0.2); BILIRUBIN,TOTAL 0.5 MG/DL (0.2-1.0); BLOOD UREA NITROGEN 13 MG/DL (7-18); CARBON DIOXIDE LEVEL 30 MEQ/L (21-32); CHLORIDE LEVEL 106 MEQ/L (98-107); CK-MB VALUE MASS 2.2 NG/ML (<3.6); CPK CREATINE PHOSPHOKINASE 122 U/L (26-192); CREATININE FOR GFR 0.96 MG/DL (0.55-1.30); FREE T4 1.03 NG/DL (0.76-1.46); GLOMERULAR FILTRATION RATE > 60.0 (>51); GLUCOSE, FASTING 101 MG/DL (70-100); LIPASE 154 U/L (73-393); POTASSIUM SERUM 3.6 MEQ/L (3.5-5.1); SODIUM LEVEL 143 MEQ/L (136-145); THYROID STIMULATING HORMONE 0.814 uIU/ML (0.358-3.740); TOTAL PROTEIN 6.5 GM/DL (6.4-8.2); TROPONIN I < 0.02 NG/ML (< 0.10)
[2020-04-12 14:31] VITALS: BP 146/75
--- NOTE | 2020-04-12 16:07 | REP ---
TWO-VIEW CHEST: REASON FOR EXAM: Chest pain. COMPARISON: 03/22/2020 The technique utilized in obtaining the radiograph has magnified the cardiac silhouette and accentuated the interstitial markings. FINDINGS: The superior mediastinal structures are midline. The cardiac silhouette is unremarkable in size, shape, and position. The diaphragmatic surfaces of the lungs are regular, and the costophrenic angles are clear. The pulmonary cabello are clear. The imaged osseous structures are intact. IMPRESSION: There is no acute cardiopulmonary disease. Note is again made of previous median sternotomy. Once again, the lung cabello are hypoexpanded. Electronically Signed by Neftaly Kumar DO 04/12/2020 04:46 P
--- NOTE | 2020-04-13 05:27 | ECGEPIP ---
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
== END 2020-04-12 15:02 | disposition left against medical advice (07) ==
LOC: M ED 11:54 → EDBD 11:54 → M ED 15:02
DX: I45.10 Unspecified right bundle-branch block (principal); F17.200 Nicotine dependence, unspecified, uncomplicated; Z53.29 Procedure and treatment not carried out because of patient's decision for other reasons; Z79.4 Long term (current) use of insulin; Z79.899 Other long term (current) drug therapy; Z85.828 Personal history of other malignant neoplasm of skin; Z95.1 Presence of aortocoronary bypass graft

== ENCOUNTER 2020-04-25 09:30 | Outpatient (RCR) | payer OTHER | END 2020-04-28 | disposition home or self-care (01) | LOC: M PT 09:30 | PROVIDERS: ATTEND Physician Assistant | DX: M50.30 Other cervical disc degeneration, unspecified cervical region (principal); M43.16 Spondylolisthesis, lumbar region ==

== ENCOUNTER 2020-05-26 12:30 | Outpatient (RCR) | payer OTHER | END 2020-05-29 | LOC: M PT 12:30 | PROVIDERS: ATTEND Physician Assistant | DX: M50.30 Other cervical disc degeneration, unspecified cervical region (principal); M43.16 Spondylolisthesis, lumbar region ==

== ENCOUNTER 2020-05-30 15:10 | Outpatient (RCR) | payer OTHER | END 2020-06-28 09:47 | disposition home or self-care (01) | LOC: M PT 15:10 | PROVIDERS: ATTEND Physician Assistant | DX: M48.02 Spinal stenosis, cervical region (principal) ==

== ENCOUNTER → 2020-06-28 | Outpatient (RCR) | payer OTHER | LOC: M PT 10:34 | PROVIDERS: ATTEND Orthopaedic Surgery | DX: M51.36 Other intervertebral disc degeneration, lumbar region (principal) ==

== ENCOUNTER 2020-07-17 10:45 | Outpatient (RCR) | payer OTHER | END 2020-07-29 | LOC: M PT 10:45 | PROVIDERS: ATTEND Orthopaedic Surgery | DX: M51.36 Other intervertebral disc degeneration, lumbar region (principal) ==

== ENCOUNTER → 2020-09-01 | Outpatient (CLI) | payer OTHER | LOC: M PAIN 13:00 | PROVIDERS: ATTEND Nurse Practitioner Family | DX: Z53.29 Procedure and treatment not carried out because of patient's decision for other reasons (principal) ==

== ENCOUNTER → 2020-09-05 | Outpatient (REF) | payer OTHER ==
[2020-09-05 17:36] LABS: MALB URINE SIEMENS 25.4 MG/L; MAU/CREAT RATIO 15.3 MCG/MG (0.0-30.0)
== END ==
LOC: M LAB REF 16:31
PROVIDERS: ATTEND Physician Assistant
DX: E11.65 Type 2 diabetes mellitus with hyperglycemia (principal)

== ENCOUNTER → 2020-10-04 | Outpatient (CLI) | payer OTHER ==
--- NOTE | 2020-10-06 00:20 | ECWPNPC ---
PATIENT NAME: USAMA MARIN : 1965 GENDER: FEMALE VISIT DATE: 10/04/2020 DISCHARGE DATE: 10/04/20 1351 VISIT LOCKED DATE TIME: PHYSICIAN: AMBAR MARTINI PHYSICIAN PAGER NO: ACTIVE RESOURCE: AMBAR MARTINI REASON FOR APPOINTMENT 1. CERVICAL/BACK PAIN/PROVIDER WOULD LIKE PMC TO TAKE OVER MEDICATIONS HISTORY OF PRESENT ILLNESS DEPRESSION SCREENING: PHQ-2 (2015 EDITION) LITTLE INTEREST OR PLEASURE IN DOING THINGS?NOT AT ALL FEELING DOWN, DEPRESSED, OR HOPELESS?NOT AT ALL TOTAL SCORE0 GENERAL: 55-YEAR-OLD FEMALE BEING REFERRED BY [facility] FOR CHRONIC LOW BACK PAIN. ALSO REPORTS INTERMITTENT PAIN IN HER LEGS DESCRIBED NUMBNESS AND FEELING OF SWELLING. DENIES PRECIPITATING EVENT. STATES SHE HAS HAD CHRONIC BACK PAIN FOR SEVERAL YEARS BUT OVER THE PAST YEAR PAIN SEEMS TO HAVE INTENSIFIED. ON CHRONIC PLAVIX THERAPY WITH HISTORY OF 2 MYOCARDIAL INFARCTIONS LAST ONE BEING IN 2016 AND ALSO CARDIAC BYPASS HISTORY. FOLLOWS WITH DR. PEARL,OPTICAL INSTRUMENT INSPECTOR. X-RAY OF THE LUMBAR SPINE HAS BEEN DONE RECENTLY AND IS REVIEWED. THIS IS SHOWING DEGENERATIVE CHANGES AND'S SPONDYLITIC CHANGES. FINISHED PHYSICAL THERAPY FOR LOW BACK PAIN IN JULY 2020. HAS HAD ADVERSE EFFECTS WITH MOST MEDICATIONS TRIALED FOR CHRONIC PAIN TO INCLUDE MUSCLE RELAXANTS AND GABAPENTIN. DENIES LOSS OF CONTROL OF BOWEL OR BLADDER. - - -. FALL RISK SCREENING: SCREENING :NO FALLS REPORTED IN THE LAST YEAR PAIN SCREENING: PATIENT HAS A COMPLAINT OF ACUTE OR CHRONIC PAIN :YES LOCATION OF PAIN:NECK LOW BACK, BILATERAL KNEES INTENSITY OF PAIN (SCALE OF 1 TO 10):9 WHAT DOES YOUR PAIN FEEL LIKE:CONTINOUS, SHARP, STABBING "TORTURING", TIGHTNESS TO NECK DURATION:CONSTANT PAIN IS INCREASED BY:ACTIVITIES, PROLONGED STANDING PAIN IS DECREASED BY:USE OF PAIN MEDICATIONS NURSING NOTE: - - -. PAIN CENTER INTAKE QUESTIONS: DO YOU HAVE A HISTORY OF MRSA? :NO DO YOU TAKE A BLOOD THINNERS? :YES PLAVIX DO YOU HAVE ANY BLEEDING DISORDERS? :NO ANY NEW NUMBNESS OR WEAKNESS IN YOUR LEGS OR ARMS? :NO ANY PACEMAKER,DEFIBRILLATOR, OR DORSAL COLUMN STIMULATOR? :NO DO YOU HAVE ANY RASHES OR OPEN SORES? :NO ARE YOU ALLERGIC TO IV DYE? :NO ARE YOU DIABETIC? :YES ANY NEW PROBLEMS WITH YOUR MEDICATIONS? :NO HAVE YOU RECEIVED A VACCINE IN THE PAST 30 DAYS? :YES IF SO WHAT VACCINE AND WHEN? FLU SHOT "LAST MONTH" DO YOU PLAN TO RECEIVE A VACCINE IN THE NEXT 21 DAYS? :NO DO YOU NEED ANY PRESCRIPTION? :NO DO YOU TAKE ANY IMMUNOSUPPRESSIVE MEDICATIONS? :NO CURRENT MEDICATIONS TAKING CLOPIDOGREL BISULFATE 75 MG TABLET 1 TABLET ORALLY ONCE A DAY TAKING METOPROLOL TARTRATE 50 MG TABLET 1 TABLET WITH FOOD ORALLY TWICE A DAY TAKING METFORMIN HCL 1000 MG TABLET 1 TABLET WITH A MEAL ORALLY TWICE DAILY TAKING BASAGLAR KWIKPEN 100 UNIT/ML SOLUTION PEN-INJECTOR 30 UNITS SUBCUTANEOUS ONCE DAILY TAKING ATORVASTATIN CALCIUM 80 MG TABLET 1 TABLET ORALLY ONCE A DAY TAKING PENTIPS 29G X 12MM MISCELLANEOUS DIRECTED SUBCUTANEOUSLY DAILY (E11.9) TAKING ALCOHOL SWABS 70 % PAD DIRECTED TOPICALLY QID (E11.9) TAKING LANCETS - MISCELLANEOUS DIRECTED SUBCUTANEOUSLY TID (E11.9) TAKING TEST STRIPS - DIRECTED (ICD 10: E:11.40) INTRADERMALLY QID TAKING MAY HAVE TYLENOL #4 PO Q 8 HOURS PRN TAKING LANTUS SOLOSTAR 100 UNIT/ML SOLUTION PEN-INJECTOR DIRECTED SUBCUTANEOUS TAKING ACETAMINOPHEN-CODEINE #4 300-60 MG TABLET (SCHEDULE III DRUG) TAKE 1 TABLET BY MOUTH EVERY 4 6 HOURS NEEDED FOR PAIN MAXIMUM DAILY DOSE 4 ORAL TAKING ONETOUCH ULTRA - (DEVICES) MISCELLANEOUS DIRECTED TAKING CETIRIZINE HCL 10 MG TABLET 1 TABLET ORALLY ONCE A DAY TAKING FAMOTIDINE 20 MG TABLET 1 TABLET AT BEDTIME NEEDED ORALLY ONCE A DAY NOT-TAKING CLOTRIMAZOLE 1 % CREAM 1 APPLICATION EXTERNALLY TWICE A DAY NOT-TAKING NICOTINE STEP 2 14 MG/24HR PATCH 24 HOUR 1 PATCH TO SKIN TRANSDERMAL ONCE A DAY NOT-TAKING ACETAMINOPHEN-CODEINE #3 300-30 MG TABLET (SCHEDULE III DRUG) TAKE ONE TABLET BY MOUTH EVERY 6 HOURS NEEDED FOR PAIN MAXIMUM DAILY DOSE 3 ORAL NOT-TAKING TRAMADOL HCL 50 MG TABLET 1-2 TABLET(S) NEEDED ORALLY EVERY 4-6 HOURS PRN MDD: 5 NOT-TAKING TIZANIDINE HCL 2 MG TABLET 1 TABLET NEEDED ORALLY MAY TAKE UP TO QID PRN NOT-TAKING GABAPENTIN 300 MG TABLET DIRECTED ORALLY NOT-TAKING GUAIFENESIN ER 600 MG TABLET EXTENDED RELEASE 12 HOUR 1 TABLET NEEDED ORALLY EVERY 12 HRS NOT-TAKING NAPROXEN 500 MG TABLET DELAYED RELEASE 1 TABLET ORALLY TWICE A DAY NOT-TAKING OMEPRAZOLE 20 MG CAPSULE DELAYED RELEASE 1 CAPSULE 30 MINUTES BEFORE MORNING MEAL ORALLY ONCE A DAY NOT-TAKING CYCLOBENZAPRINE HCL 10 MG TABLET DIRECTED ORALLY ONCE A DAY NOT-TAKING DICLOFENAC SODIUM 75 MG TABLET DELAYED RELEASE 1 TABLET ORALLY TWICE A DAY NOT-TAKING FLECTOR 1.3 % PATCH 1 PATCH TO SKIN TO MOST PAINFUL AREA EXTERNALLY TWICE A DAY NOT-TAKING DIPHENHYDRAMINE HCL 25 MG CAPSULE 1 CAPSULE AT BEDTIME NEEDED ORALLY ONCE A DAY NOT-TAKING FUROSEMIDE 40 MG TABLET 1 TABLET ORALLY ONCE A DAY NOT-TAKING METHYLPREDNISOLONE (ASHLEY) NOT-TAKING POTASSIUM CHLORIDE ER 20 MEQ TABLET EXTENDED RELEASE 1 TABLET WITH FOOD ORALLY ONCE A DAY NOT-TAKING MOBIC 7.5 MG TABLET 1 TABLET ORALLY ONCE A DAY NOT-TAKING LIDOCAINE 5 % PATCH 1 PATCH REMOVE AFTER 12 HOURS EXTERNALLY ONCE A DAY NOT-TAKING NICOTINE STEP 2 14 MG/24HR PATCH 24 HOUR 1 PATCH TO SKIN TRANSDERMAL ONCE A DAY NOT-TAKING BLOOD GLUCOSE MONITORING SUPPL W/DEVICE KIT DIRECTED DIRECTED TID (E11.9) MEDICATION LIST REVIEWED AND RECONCILED WITH THE PATIENT PAST MEDICAL HISTORY DIABETES [place] 2003, 2015, ON PLAVIX HTN OBESITY ESOPHAGEAL REFLUX INSOMNIA BIPOLAR SMOKING PAIN IN LEFT KNEE CORONARY ARTERIOSCLEROSIS MASS OF JOINT OF RIGHT HAND H. PYLORI G.I. TRACT INFECTION ALLERGIES ASPIRIN: NAUSEA/VOMITING - SIDE EFFECTS TIZANIDINE HCL: PATIENT STATES, "SHE DOEN'T FEEL RIGHT" SURGICAL HISTORY BCC ON NOSE HEART BYPASS LT AND RT KNEE SURGERY FAMILY HISTORY FATHER: MOTHER: , DEMENTIA SIBLINGS: ALIVE 2 BROTHER(S) - HEALTHY. SOCIAL HISTORY GENERAL: TOBACCO USE ARE YOU A:CURRENT SMOKER ARE YOU INTERESTED IN QUITTING?THINKING ABOUT QUITTING COUNSELED THE PATIENT ON SMOKING CESSATION, EDUCATION [id number]/05/2021 HOW MANY CIGARETTES A DAY DO YOU SMOKE?11-20 VAPORNO E-CIGARETTENO LATEX QUESTIONNAIRE LATEX ALLERGY : HAVE YOU EVER DEVELOPED ANY TYPE OF REACTION AFTER HANDLING LATEX PRODUCTS SUCH RUBBER GLOVES, CONDOMS, DIAPHRAGMS, BALLOONS, SOCKS, OR UNDERWEAR?NO LATEX ALLERGY : HAVE YOU EVER DEVELOPED ANY TYPE OF REACTION DURING OR AFTER DENTAL APPOINTMENT, VAGINAL/RECTAL EXAMINATION, SURGICAL PROCEDURE, OR ANY OTHER EXPOSURE?NO LATEX RISK : HAVE YOU EVER HAD ANY DIFFICULTY BREATHING OR HIVES AFTER EATING OR HANDLING ANY FRUITS, OR VEGETABLES; SUCH KIWI, BANANAS, STONE FRUITS, OR CHESTNUTSNO LATEX RISK : DO YOU HAVE A PREVIOUS PERSONAL HISTORY OF MORE THAN NINE SURGERIES, SPINA BIFIDA, OR REPEATED CATHERIZATIONS? NO LATEX RISK : ARE YOU FREQUENTLY EXPOSED TO LATEX PRODUCTS IN YOUR OCCUPATION?NO DATE ASKED : 10/03/2020 LUNG CANCER SCREENING SMOKING STATUS: CURRENT SMOKER, IS THE PATIENT BETWEEN THE AGE OF 54 AND 76? YES, HAS THE PATIENT EVER BEEN DIAGNOSED WITH LUNG CANCER? NO, PACK YEARS = NUMBER OF PACKS PER DAY SMOKED X NUMBER OF YEARS SMOKED: 18, CREATE REFERRAL: GENERATE AND CREATE REFERRAL TO THE ONCOLOGY NURSE NAVIGATOR (SMP) LISTING USING THE LDCT SCAN PROCEDURE, DISCLAIMER: PLEASE ADD DISCLAIMER FROM BROWSE SECTION OF THE NOTE. BMI CARE GOAL FOLLOW-UP ABOVE NORMAL BMI FOLLOW-UPGIVING ENCOURAGEMENT TO EXERCISE ALCOHOL SCREENING DID YOU HAVE A DRINK CONTAINING ALCOHOL IN THE PAST YEAR?NO POINTS0 INTERPRETATIONNEGATIVE RECREATIONAL DRUG USE DRUG USE?NO CAFFEINE CAFFEINE USE?YES SEXUAL HX HAD SEX IN THE LAST 12 MONTHS (VAGINAL, ORAL, OR ANAL)?YES WITHMEN ONLY USE PROTECTION?NO HAVE YOU EVER HAD AN STD?NO HIV / HEP-C SCREENING HIV TEST OFFERED TO PATIENT:YES DATE OFFERED:10/29/2019 HEP-C TEST OFFERED TO PATIENT:YES DATE OFFERED:10/29/2019 BROCHURE PROVIDED TO PATIENTYES LEARNING BARRIERS / SPECIAL NEEDS BARRIERS TO LEARNING?NO HEARING IMPAIRED?NO VISION IMPAIRED?YES :CORRECTIVE LENSES COGNITIVELY IMPAIRED?NO READINESS TO LEARN?YES LEARNING PREFERENCES?NO LEARNING CAPABILITIES PRESENT?YES EMOTIONAL BARRIERS?NO SPECIAL DEVICES?NO SOAP BOILER NEEDED?NO PAIN CLINIC PFS, CLERGY, PUBLIC HEALTH REFERRALS HAS THE PATIENT BEEN EDUCATED REGARDING HIS/HER PLAN OF CARE?YES HAS THE PATIENT BEEN EDUCATED REGARDING PAIN, THE RISK FOR PAIN, THE IMPORTANCE OF EFFECTIVE PAIN MANAGEMENT, AND THE PAIN ASSESSMENT PROCESS?YES ADVANCE DIRECTIVE ADVANCE DIRECTIVE DISCUSSED WITH PATIENT:YES OFFERED AND DECLINED HOSPITALIZATION/MAJOR DIAGNOSTIC PROCEDURE OK SURGERIES REVIEW OF SYSTEMS CONSTITUTIONAL: ANY RECENT FEVER NO . CHILLS NO . WEIGHT CHANGE OF UNKNOWN REASONS NO . GASTROENTEROLOGY: NEW UNEXPLAINABLE CHANGES IN BOWEL CONTROL NO . CONSTIPATION NO . GENITOURINARY: ANY NEW CHANGE IN BLADDER CONTROL? NO . NEUROLOGY: NEW ONSET DIZZINESS OR NEUROLOGICAL CHANGES NOT MENTIONED NO . NEW NUMBNESS OR PAIN PATTERNS NOT MENTIONED AND PERTINENT TO TODAY'S VISIT NO . CARDIOLOGY: NEW CHEST PRESSURE NO . NEW CHEST PAIN NO . RESPIRATORY: UNEXPLAINABLE COUGH NO . NEW SHORTNESS OF BREATH NO . VITAL SIGNS WT 217.6 LBS, HT 64 IN, BMI 37.35 INDEX, BP 151/72 MM HG, HR 89 /MIN, RR 18 /MIN, TEMP 97.1 F, OXYGEN SAT % 95%, SAFE IN ENV? (Y/N) YES, NA INITIALS AW 1305, REVIEWED BY: JSJ. AILEEN RN. EXAMINATION GENERAL EXAMINATION: GENERALNO ACUTE DISTRESS, WELL NOURISHED AND HYDRATED. PSYCHAPPROPRIATE MOOD AND AFFECT . FACE:UNREMARKABLE. NECK:NO LYMPHADENOPATHY, SUPPLE, NO THYROMEGALLY,. LUNGS:CLEAR TO AUSCULTATION BILATERALLY, NO WHEEZES, RHONCHI, RALES. HEART:NO MURMURS, REGULAR RATE AND RHYTHM. MUSCULOSKELETAL: MUSCLE STRENGTH TESTING 5/5 BILATERAL UPPER AND LOWER EXTREMITIES. LUMBAR: PALPATION: + FOR PAIN OVER L/S SPINE. + FOR PAIN OVER L/S PARSPINALS. DIAGNOSTIC TESTS REVIEWED XRAY LUMBAR SPINE. ASSESSMENTS LOW BACK PAIN AT MULTIPLE SITES - M54.5 (PRIMARY) TREATMENT LOW BACK PAIN AT MULTIPLE SITES [facility] MRI LUMBAR W/O CONTRAST (CPT [id number] NOTES: WE WILL REVIEW MRI OF LUMBOSACRAL SPINE AT FOLLOW-UP APPOINTMENT AND DISCUSS TREATMENT OPTIONS. I WOULD NOT RECOMMEND ANY MEDICATIONS FOR CHRONIC PAIN. PATIENT HAS A LONG HISTORY OF PROBLEMS WITH PAIN MEDICATIONS. SHE IS ASKING FOR TYLENOL WITH CODEINE. INFORMED HER THAT I WOULD BE REVIEWING MRI AT FOLLOW-UP APPOINTMENT AND POSSIBLY COULD DISCUSS MEDICATIONS AT THAT VISIT. I WOULD NOT BE ADVISING NARCOTIC PAIN MEDICATIONS. OTHERS CLINICAL NOTES: 10/03/20 1550 PAT COMPLETED, NEW PATIENT CONSULT. Sunita VAZQUEZ RN BSN. PROCEDURE CODES FA211 ESTABILISHED PATIENT [facility] CHARGE DISPOSITION & COMMUNICATION FOLLOW UP 6 WEEKS (REASON: REVIEW MRI LUMBAR SPINE) ELECTRONICALLY SIGNED BY JHOAN MAGALLANES ON 10/05/2020 AT 03:16 PM EST DISCLAIMER : THIS IS A VISIT SUMMARY EXTRACTED FROM THE [employer] CHART. IT IS NOT A COPY OF THE [employer] PROGRESS NOTE. JESUS
== END ==
LOC: M PAIN 13:00
PROVIDERS: ATTEND Nurse Practitioner Family
DX: M54.5 Low back pain (principal); G89.29 Other chronic pain; E11.9 Type 2 diabetes mellitus without complications; I25.2 Old myocardial infarction; G47.00 Insomnia, unspecified; F17.210 Nicotine dependence, cigarettes, uncomplicated; Z86.59 Personal history of other mental and behavioral disorders; Z88.6 Allergy status to analgesic agent; Z88.8 Allergy status to other drugs, medicaments and biological substances; Z79.4 Long term (current) use of insulin; Z79.899 Other long term (current) drug therapy

== ENCOUNTER → 2020-10-13 | Outpatient (CLI) | payer OTHER ==
[~2020-10-13] MED LIST changes: +GABA-282 PO; -GABA-843 PO
--- NOTE | 2020-10-13 18:18 | REPVR ---
PROCEDURE INFORMATION: Exam: MR Lumbar Spine Without Contrast. Exam date and time: 10/13/2020 5:33 PM Age: 55 years old Clinical indication: Low back pain TECHNIQUE: Imaging protocol: Multiplanar magnetic resonance images of the lumbar spine without contrast. COMPARISON: No relevant prior studies available. FINDINGS: Vertebrae: There is no acute compression fracture in the lumbar spine. There is anterior spondylolisthesis of L4 on L5. There is bony ankylosis of the L5 and S1 vertebral bodies. Spinal cord: The conus medullaris is normal appearance at the L1-L2 level. Discs/Spinal canal/Neural foramina: There is no evidence of significant spinal canal stenosis or neural foraminal narrowing in the lower thoracic spine through the L3-L4 level. L4-L5: Moderate to severe spinal canal stenosis due to the degenerative spondylolisthesis with diffusely bulging annulus and ligamentum flavum hypertrophy compressing the thecal sac and both exiting L5 nerve roots. There is also narrowing of both neural foramen however the L4 nerve roots do not appear to be compressed. L5-S1: Endplate osteophytes narrowing the ventral spinal canal narrowing the lateral recesses greater on left than right without significant compression of the exiting S1 nerve roots. The neural foramina are patent. Soft tissues: Unremarkable. IMPRESSION: There is a grade 1 anterior spondylolisthesis of L4 on L5 due to subluxation of the degenerated facet joints with resultant moderate to severe spinal canal stenosis, compression of the thecal sac and the exiting L5 nerve roots. Uncovered disc material narrows both neural foramen however the L4 nerve roots do not appear to be compressed. Electronically signed by: Kya Perera On 10/13/2020 18:17:30 PM
== END ==
LOC: M RAD 16:36
PROVIDERS: ATTEND Nurse Practitioner Family
DX: M25.78 Osteophyte, vertebrae (principal); M43.16 Spondylolisthesis, lumbar region; M99.23 Subluxation stenosis of neural canal of lumbar region

== ENCOUNTER → 2020-10-13 | Outpatient (CLI) | payer OTHER ==
[2020-10-13 08:47] LABS: HEMATOCRIT 42.1 % (36.0-47.0); HEMOGLOBIN 13.6 g/dl (12.0-15.5); MEAN CORPUSCULAR HEMOGLOBIN 27.7 pg (27.0-33.0); MEAN CORPUSCULAR HGB CONC 32.3 g/dl (32.0-36.5); MEAN CORPUSCULAR VOLUME 85.7 fl (80.0-96.0); PLATELET COUNT, AUTOMATED 262 10^3/uL (150-450); RED BLOOD COUNT 4.91 10^6/uL (4.00-5.40); WHITE BLOOD COUNT 9.7 10^3/uL (4.0-10.0)
[2020-10-13 09:16] LABS: ALBUMIN 3.9 GM/DL (3.2-5.2); ALT/SGPT 37 U/L (12-78); BILIRUBIN,TOTAL 0.4 MG/DL (0.2-1.0); BLOOD UREA NITROGEN 14 MG/DL (7-18); CALCIUM LEVEL 8.8 MG/DL (8.5-10.1); CARBON DIOXIDE LEVEL 25 MEQ/L (21-32); CHLORIDE LEVEL 109 MEQ/L (98-107); CHOLESTEROL LEVEL 108 MG/DL (<200); CHOLESTEROL RISK RATIO 3.483 (<5); CREATININE FOR GFR 0.86 MG/DL (0.55-1.30); GLOMERULAR FILTRATION RATE > 60.0 (>51); GLUCOSE, FASTING 108 MG/DL (70-100); HDL CHOLESTEROL 31 MG/DL (>40); LDL CHOLESTEROL 47 MG/DL (<100); NON-HDL-C 77 MG/DL; POTASSIUM SERUM 4.3 MEQ/L (3.5-5.1); SODIUM LEVEL 140 MEQ/L (136-145); TOTAL PROTEIN 6.6 GM/DL (6.4-8.2); TRIGLYCERIDES LEVEL 149 MG/DL (<150)
[2020-10-13 10:07] LABS: HEMOGLOBIN A1c 6.9 %
== END ==
LOC: M LAB 07:53
PROVIDERS: ATTEND Physician Assistant
DX: E11.65 Type 2 diabetes mellitus with hyperglycemia (principal)

== ENCOUNTER → 2020-11-09 | Outpatient (CLI) | payer OTHER ==
--- NOTE | 2020-11-12 23:06 | ECWPNPC ---
PATIENT NAME: USAMA MARIN : 1965 GENDER: FEMALE VISIT DATE: 11/09/2020 DISCHARGE DATE: 11/09/20 1420 VISIT LOCKED DATE TIME: PHYSICIAN: AMBAR MARTINI PHYSICIAN PAGER NO: ACTIVE RESOURCE: AMBAR MARTINI REASON FOR APPOINTMENT 1. REVIEW MRI. HISTORY OF PRESENT ILLNESS GENERAL: HERE FOR FOLLOW-UP OF CHRONIC LOW BACK PAIN. REVIEWED MRI OF LS-SPINE I ORDERED AT INITIAL VISIT IN SEPTEMBER. THIS IS SHOWING MODERATE TO SEVERE DEGENERATIVE CHANGES LEADING TO SPINAL STENOSIS. SHOWING SPONDYLOLISTHESIS AT L4-5. CONTINUES TO HAVE SEVERE LOW BACK PAIN. DISCUSSED RADIOFREQUENCY AND DIAGNOSTIC TESTING. DISCUSSED MEDICATIONS AND USE OF MEDICATION PERIODICALLY FOR SEVERE PAIN EPISODES . PATIENT APPEARS TO UNDERSTAND AND WOULD LIKE TO PROCEED WITH DIAGNOSTIC TESTING FOR RADIOFREQUENCY.-. FALL RISK SCREENING: SCREENING :ONE FALL WITHOUT INJURY IN THE PAST YEAR PAIN SCREENING: PATIENT HAS A COMPLAINT OF ACUTE OR CHRONIC PAIN :YES LOCATION OF PAIN:LOW BACK INTENSITY OF PAIN (SCALE OF 1 TO 10):7 WHAT DOES YOUR PAIN FEEL LIKE:STABBING DURATION:INTERMITTENT PAIN IS INCREASED BY:ACTIVITIES PAIN IS DECREASED BY:OTHERS HEATING PAD NURSING NOTE: -. PAIN CENTER INTAKE QUESTIONS: DO YOU HAVE A HISTORY OF MRSA? :NO DO YOU TAKE A BLOOD THINNERS? :YES PLAVIX DO YOU HAVE ANY BLEEDING DISORDERS? :NO ANY NEW NUMBNESS OR WEAKNESS IN YOUR LEGS OR ARMS? :NO ANY PACEMAKER,DEFIBRILLATOR, OR DORSAL COLUMN STIMULATOR? :NO DO YOU HAVE ANY RASHES OR OPEN SORES? :NO ARE YOU ALLERGIC TO IV DYE? :NO ARE YOU DIABETIC? :YES ANY NEW PROBLEMS WITH YOUR MEDICATIONS? :NO HAVE YOU RECEIVED A VACCINE IN THE PAST 30 DAYS? :YES IF SO WHAT VACCINE AND WHEN? FLU SHOT "LAST MONTH" DO YOU PLAN TO RECEIVE A VACCINE IN THE NEXT 21 DAYS? :NO DO YOU NEED ANY PRESCRIPTION? :NO DO YOU TAKE ANY IMMUNOSUPPRESSIVE MEDICATIONS? :NO CURRENT MEDICATIONS TAKING CLOPIDOGREL BISULFATE 75 MG TABLET 1 TABLET ORALLY ONCE A DAY TAKING METFORMIN HCL 1000 MG TABLET 1 TABLET WITH A MEAL ORALLY TWICE DAILY TAKING BASAGLAR KWIKPEN 100 UNIT/ML SOLUTION PEN-INJECTOR 30 UNITS SUBCUTANEOUS ONCE DAILY TAKING ATORVASTATIN CALCIUM 80 MG TABLET 1 TABLET ORALLY ONCE A DAY TAKING PENTIPS 29G X 12MM MISCELLANEOUS DIRECTED SUBCUTANEOUSLY DAILY (E11.9) TAKING ALCOHOL SWABS 70 % PAD DIRECTED TOPICALLY QID (E11.9) TAKING LANCETS - MISCELLANEOUS DIRECTED SUBCUTANEOUSLY TID (E11.9) TAKING TEST STRIPS - DIRECTED (ICD 10: E:11.40) INTRADERMALLY QID TAKING MAY HAVE TYLENOL #4 PO Q 8 HOURS PRN TAKING LANTUS SOLOSTAR 100 UNIT/ML SOLUTION PEN-INJECTOR DIRECTED SUBCUTANEOUS TAKING ONETOUCH ULTRA - (DEVICES) MISCELLANEOUS DIRECTED TAKING CETIRIZINE HCL 10 MG TABLET 1 TABLET ORALLY ONCE A DAY TAKING FAMOTIDINE 20 MG TABLET 1 TABLET AT BEDTIME NEEDED ORALLY ONCE A DAY TAKING NICOTINE STEP 2 14 MG/24HR PATCH 24 HOUR 1 PATCH TO SKIN TRANSDERMAL ONCE A DAY NOT-TAKING METOPROLOL TARTRATE 50 MG TABLET 1 TABLET WITH FOOD ORALLY TWICE A DAY NOT-TAKING ACETAMINOPHEN-CODEINE #4 300-60 MG TABLET (SCHEDULE III DRUG) TAKE 1 TABLET BY MOUTH EVERY 4 6 HOURS NEEDED FOR PAIN MAXIMUM DAILY DOSE 4 ORAL NOT-TAKING CLOTRIMAZOLE 1 % CREAM 1 APPLICATION EXTERNALLY TWICE A DAY NOT-TAKING ACETAMINOPHEN-CODEINE #3 300-30 MG TABLET (SCHEDULE III DRUG) TAKE ONE TABLET BY MOUTH EVERY 6 HOURS NEEDED FOR PAIN MAXIMUM DAILY DOSE 3 ORAL NOT-TAKING TRAMADOL HCL 50 MG TABLET 1-2 TABLET(S) NEEDED ORALLY EVERY 4-6 HOURS PRN MDD: 5 NOT-TAKING TIZANIDINE HCL 2 MG TABLET 1 TABLET NEEDED ORALLY MAY TAKE UP TO QID PRN NOT-TAKING GABAPENTIN 300 MG TABLET DIRECTED ORALLY NOT-TAKING GUAIFENESIN ER 600 MG TABLET EXTENDED RELEASE 12 HOUR 1 TABLET NEEDED ORALLY EVERY 12 HRS NOT-TAKING NAPROXEN 500 MG TABLET DELAYED RELEASE 1 TABLET ORALLY TWICE A DAY NOT-TAKING OMEPRAZOLE 20 MG CAPSULE DELAYED RELEASE 1 CAPSULE 30 MINUTES BEFORE MORNING MEAL ORALLY ONCE A DAY NOT-TAKING CYCLOBENZAPRINE HCL 10 MG TABLET DIRECTED ORALLY ONCE A DAY NOT-TAKING DICLOFENAC SODIUM 75 MG TABLET DELAYED RELEASE 1 TABLET ORALLY TWICE A DAY NOT-TAKING FLECTOR 1.3 % PATCH 1 PATCH TO SKIN TO MOST PAINFUL AREA EXTERNALLY TWICE A DAY NOT-TAKING DIPHENHYDRAMINE HCL 25 MG CAPSULE 1 CAPSULE AT BEDTIME NEEDED ORALLY ONCE A DAY NOT-TAKING FUROSEMIDE 40 MG TABLET 1 TABLET ORALLY ONCE A DAY NOT-TAKING METHYLPREDNISOLONE (ASHLEY) NOT-TAKING POTASSIUM CHLORIDE ER 20 MEQ TABLET EXTENDED RELEASE 1 TABLET WITH FOOD ORALLY ONCE A DAY NOT-TAKING MOBIC 7.5 MG TABLET 1 TABLET ORALLY ONCE A DAY NOT-TAKING LIDOCAINE 5 % PATCH 1 PATCH REMOVE AFTER 12 HOURS EXTERNALLY ONCE A DAY NOT-TAKING NICOTINE STEP 2 14 MG/24HR PATCH 24 HOUR 1 PATCH TO SKIN TRANSDERMAL ONCE A DAY NOT-TAKING BLOOD GLUCOSE MONITORING SUPPL W/DEVICE KIT DIRECTED DIRECTED TID (E11.9) MEDICATION LIST REVIEWED AND RECONCILED WITH THE PATIENT PAST MEDICAL HISTORY DIABETES DE 2003, 2016, ON PLAVIX HTN OBESITY ESOPHAGEAL REFLUX INSOMNIA BIPOLAR SMOKING PAIN IN LEFT KNEE CORONARY ARTERIOSCLEROSIS MASS OF JOINT OF RIGHT HAND H. PYLORI G.I. TRACT INFECTION ALLERGIES ASPIRIN: NAUSEA/VOMITING - SIDE EFFECTS TIZANIDINE HCL: PATIENT STATES, "SHE DOEN'T FEEL RIGHT" SOCIAL HISTORY GENERAL: TOBACCO USE ARE YOU A:CURRENT SMOKER ARE YOU INTERESTED IN QUITTING?THINKING ABOUT QUITTING COUNSELED THE PATIENT ON SMOKING CESSATION, EDUCATION [id number]/11/2021 HOW MANY CIGARETTES A DAY DO YOU SMOKE?11-20 VAPORNO E-CIGARETTENO LATEX QUESTIONNAIRE LATEX ALLERGY : HAVE YOU EVER DEVELOPED ANY TYPE OF REACTION AFTER HANDLING LATEX PRODUCTS SUCH RUBBER GLOVES, CONDOMS, DIAPHRAGMS, BALLOONS, SOCKS, OR UNDERWEAR?NO LATEX ALLERGY : HAVE YOU EVER DEVELOPED ANY TYPE OF REACTION DURING OR AFTER DENTAL APPOINTMENT, VAGINAL/RECTAL EXAMINATION, SURGICAL PROCEDURE, OR ANY OTHER EXPOSURE?NO LATEX RISK : HAVE YOU EVER HAD ANY DIFFICULTY BREATHING OR HIVES AFTER EATING OR HANDLING ANY FRUITS, OR VEGETABLES; SUCH KIWI, BANANAS, STONE FRUITS, OR CHESTNUTSNO LATEX RISK : DO YOU HAVE A PREVIOUS PERSONAL HISTORY OF MORE THAN NINE SURGERIES, SPINA BIFIDA, OR REPEATED CATHERIZATIONS? NO LATEX RISK : ARE YOU FREQUENTLY EXPOSED TO LATEX PRODUCTS IN YOUR OCCUPATION?NO DATE ASKED : 11/09/2020 ALCOHOL USE: NO. LUNG CANCER SCREENING SMOKING STATUS: CURRENT SMOKER, IS THE PATIENT BETWEEN THE AGE OF 54 AND 76? YES, HAS THE PATIENT EVER BEEN DIAGNOSED WITH LUNG CANCER? NO, PACK YEARS = NUMBER OF PACKS PER DAY SMOKED X NUMBER OF YEARS SMOKED: 18, CREATE REFERRAL: GENERATE AND CREATE REFERRAL TO THE ONCOLOGY NURSE NAVIGATOR (SMP) LISTING USING THE LDCT SCAN PROCEDURE, DISCLAIMER: PLEASE ADD DISCLAIMER FROM BROWSE SECTION OF THE NOTE. BMI CARE GOAL FOLLOW-UP ABOVE NORMAL BMI FOLLOW-UPGIVING ENCOURAGEMENT TO EXERCISE ALCOHOL SCREENING DID YOU HAVE A DRINK CONTAINING ALCOHOL IN THE PAST YEAR?NO POINTS0 INTERPRETATIONNEGATIVE RECREATIONAL DRUG USE DRUG USE?NO CAFFEINE CAFFEINE USE?YES SEXUAL HX HAD SEX IN THE LAST 12 MONTHS (VAGINAL, ORAL, OR ANAL)?YES WITHMEN ONLY USE PROTECTION?NO HAVE YOU EVER HAD AN STD?NO HIV / HEP-C SCREENING HIV TEST OFFERED TO PATIENT:YES DATE OFFERED:10/29/2019 BROCHURE PROVIDED TO PATIENTYES HEP-C TEST OFFERED TO PATIENT:YES DATE OFFERED:10/29/2019 LEARNING BARRIERS / SPECIAL NEEDS CHANGE FROM LAST VISIT?NO BARRIERS TO LEARNING?NO HEARING IMPAIRED?NO VISION IMPAIRED?YES :CORRECTIVE LENSES COGNITIVELY IMPAIRED?NO READINESS TO LEARN?YES LEARNING PREFERENCES?NO LEARNING CAPABILITIES PRESENT?YES EMOTIONAL BARRIERS?NO SPECIAL DEVICES?NO FIRM ADMINISTRATOR NEEDED?NO - HAS THE PATIENT BEEN EDUCATED REGARDING HIS/HER PLAN OF CARE?YES HAS THE PATIENT BEEN EDUCATED REGARDING PAIN, THE RISK FOR PAIN, THE IMPORTANCE OF EFFECTIVE PAIN MANAGEMENT, AND THE PAIN ASSESSMENT PROCESS?YES ADVANCE DIRECTIVE ADVANCE DIRECTIVE DISCUSSED WITH PATIENT:YES OFFERED AND DECLINED REVIEW OF SYSTEMS CONSTITUTIONAL: ANY RECENT FEVER NO . CHILLS NO . WEIGHT CHANGE OF UNKNOWN REASONS NO . GASTROENTEROLOGY: NEW UNEXPLAINABLE CHANGES IN BOWEL CONTROL NO . CONSTIPATION NO . GENITOURINARY: ANY NEW CHANGE IN BLADDER CONTROL? NO . NEUROLOGY: NEW ONSET DIZZINESS OR NEUROLOGICAL CHANGES NOT MENTIONED NO . NEW NUMBNESS OR PAIN PATTERNS NOT MENTIONED AND PERTINENT TO TODAY'S VISIT NO . CARDIOLOGY: NEW CHEST PRESSURE NO . NEW CHEST PAIN NO . RESPIRATORY: UNEXPLAINABLE COUGH NO . NEW SHORTNESS OF BREATH NO . VITAL SIGNS WT 216 LBS, HT 64 IN, BMI 37.07 INDEX, BP 129/68 MM HG, HR 89 /MIN, RR 18 /MIN, TEMP 96.7 F, OXYGEN SAT % 99%, SAFE IN ENV? (Y/N) YEST.NGOC [place]. EXAMINATION GENERAL EXAMINATION: GENERAL AWAKE,ALERT ,PLEAASANT . PSYCH AFFECT NORMAL . LUNGS: LUNG GOINS ARE CLEAR TO AUSCULTATION BILATERALLY. GOOD MOVEMENT OF AIR . HEART: S1, S2 IN A REGULAR RATE AND RHYTHM. NO SIGNIFICANT MURMURS, RUBS OR GALLOPS NOTED . LUMBAR: PALPATION: + FOR PAIN OVER L/S SPINE. + FOR PAIN OVER L/S PARASPINALS .SPECIFIC POINT TENDERNESS OVER BILAT L4/5-L5/S1 LUMBAR FACETS WITH FACET LOADING. NEUROLOGIC EXAM: NORMAL SENSATION LIGHT TOUCH BILAT. LOWER EXTREMITIES . DIAGNOSTIC TESTS REVIEWED MRI L/S SPINE 09/2020. ASSESSMENTS DEGENERATIVE LUMBAR SPINAL STENOSIS - M48.061 (PRIMARY) TREATMENT DEGENERATIVE LUMBAR SPINAL STENOSIS START ACETAMINOPHEN-CODEINE #3 TABLET, 300-30 MG, 1 TABLET NEEDED, ORALLY, TWICE A DAY IF NECESSARY FOR SEVERE PAIN MDD 2 #30 TABS SHOULD LAST 30 DAYS, 30 DAYS, 30, REFILLS 0 NOTES: BILATERAL DIAGNOSTIC LUMBAR FACET BLOCK L4-5, L5-S1 STOP PLAVIX 7 DAYS PREPROCEDURE/WE HAVE RECEIVED OKAY PER DR. PEARL , ISTOP REGISTRY REVIEWED AND DEMONSTRATES COMPLLIANCE. [facility] NARCOTIC AGREEMENT WAS REVIEWED AND SIGNED TODAY BY THE PATIENT. SEE ATTACHED DOCUMENT FOR FULL DETAILS; SPECIFIC ISSUES WERE REVIEWED: 1) KEEP PAIN MEDS IN THEIR ORIGINAL BOTTLES AND ANY WEEKLY PLANNERS ARE TO BE BROUGHT TO THE PAIN CENTER AT EVERY VISIT. 2) THE PATIENT IS NOT TO INCREASE DOSING OR TIMING OF THEIR PAIN MEDICATION WITHOUT SPECIFIC DIRECTION OF THEIR PAIN CENTERPROVIDER (NOT ER OR OTHER PROVIDERS). 3) ALL PAIN MEDS ARE TO BE KEPT SECURED, IN A LOCKED BOX. 4) NO PAIN MEDS ARE TO BE SHARED WITH ANY OTHER PERSON FOR ANY REASON. 5) NO PAIN MEDS MAY BE TAKEN FROM ANY FRIENDS OR RELATIVES FOR ANY REASON 6) NO MEDS OR SUBSTANCES WHICH ARE NOT LEGAL ARE TO BE USED- NO MARIJUANA, NO COCAINE, AMPHETAMINES, HEROIN, OR OTHERS ARE EVER TO BE USED. 7)URINE TESTING IS DONE TO ACCOUNT FOR MEDS AND SUBSTANCES BEING TAKEN AND WILL BE DONE RANDOMLY., RISKS OF NARCOTIC/OPIOD MEDICATIONS INCLUDES BUT IS NOT LIMITED TO RISK OF DEPENDANCE/DEVELOPMENT OF ADDICTION, MOOD DISTURBANCE AND DEPRESSION, OSTEOPOROSIS, HORMONAL AND LABIDAL CHANGES, RESPIRATORY DEPRESSION AND . PATIENT IS ADVISED NOT TO DRIVE OR DRINK ALCOHOL WHILE ON THESE MEDICATIONS, . PRINTED AND REVIWED PRE PROCEDURE WITH PATIENT SARA KIRKLAND. PROCEDURE CODES FA211 ESTABILISHED PATIENT [facility] FACILITY CHARGE DISPOSITION & COMMUNICATION FOLLOW UP POST PROCEDURE/MEDICATION MANAGEMENT/U TOX (REASON: BILATERAL DIAGNOSTIC LUMBAR FACET BLOCK L4-5, L5-S1) ELECTRONICALLY SIGNED BY JHOAN MAGALLANES ON 11/12/2020 AT 06:37 PM EST DISCLAIMER : THIS IS A VISIT SUMMARY EXTRACTED FROM THE [employer] CHART. IT IS NOT A COPY OF THE [employer] PROGRESS NOTE. JESUS
== END ==
LOC: M PAIN 13:45
PROVIDERS: ATTEND Nurse Practitioner Family
DX: M48.061 Spinal stenosis, lumbar region without neurogenic claudication (principal); G89.29 Other chronic pain; E11.9 Type 2 diabetes mellitus without complications; I25.2 Old myocardial infarction; G47.00 Insomnia, unspecified; F17.210 Nicotine dependence, cigarettes, uncomplicated; Z86.59 Personal history of other mental and behavioral disorders; Z88.6 Allergy status to analgesic agent; Z88.8 Allergy status to other drugs, medicaments and biological substances; Z79.4 Long term (current) use of insulin; Z79.891 Long term (current) use of opiate analgesic; Z79.899 Other long term (current) drug therapy

== ENCOUNTER → 2020-11-17 | Outpatient (CLI) | payer OTHER | LOC: M LABSMTC 12:12 | PROVIDERS: ATTEND Anesthesiology | DX: Z01.812 Encounter for preprocedural laboratory examination (principal); Z20.822 Contact with and (suspected) exposure to COVID-19 ==

== ENCOUNTER → 2020-11-22 | Outpatient (CLI) | payer OTHER ==
[~2020-11-22] MED LIST changes: +BUPIVACAINE HCL 0.25% 30ML VIAL As Ordered ONE; +ISOVUE-M 300 61% 15ML VIAL As Ordered ONE; +LIDOCAINE 1% SDV 30ML VIAL As Ordered ONE
--- NOTE | 2020-11-22 16:26 | REP ---
INDICATION: BILATERAL DIAGNOSTIC LUMBAR FACET. COMPARISON: None. TECHNIQUE: Two views. Thirty-eight seconds of fluoroscopy time is reported. FINDINGS: A sequence of 2 last image hold fluoroscopically obtained spot radiograph(s) of the lumbar spine document(s) needle position(s) and contrast injection associated with injection procedure. IMPRESSION: Procedural imaging. <Electronically signed by Kraig Evangelista > 11/22/20 [id number]
--- NOTE | 2020-11-24 00:50 | ECWPNPC ---
PATIENT NAME: USAMA MARIN : 1965 GENDER: FEMALE VISIT DATE: 11/22/2020 DISCHARGE DATE: 11/22/20 1426 VISIT LOCKED DATE TIME: PHYSICIAN: TOBI MARTINEZ MD PHYSICIAN PAGER NO: ACTIVE RESOURCE: TOBI MARTINEZ MD REASON FOR APPOINTMENT 1. BILATERAL DIAGNOSTIC LUMBAR FACET BLOCK #1 L4-L5, L5-S1 HISTORY OF PRESENT ILLNESS GENERAL: -. FALL RISK SCREENING: SCREENING :ONE FALL WITHOUT INJURY IN THE PAST YEAR PAIN SCREENING: PATIENT HAS A COMPLAINT OF ACUTE OR CHRONIC PAIN :YES LOCATION OF PAIN:LOW BACK INTENSITY OF PAIN (SCALE OF 1 TO 10):7 WHAT DOES YOUR PAIN FEEL LIKE:STABBING DURATION:INTERMITTENT PAIN IS INCREASED BY:OTHERS LYING FLAT PAIN IS DECREASED BY:OTHERS HEAT NURSING NOTE: -. PAIN CENTER INTAKE QUESTIONS: DO YOU HAVE A HISTORY OF MRSA? :NO DO YOU TAKE A BLOOD THINNERS? :YES PLAVIX- HELD 11/14/20 DO YOU HAVE ANY BLEEDING DISORDERS? :NO ANY NEW NUMBNESS OR WEAKNESS IN YOUR LEGS OR ARMS? :YES NUMBNESS INTERMITTENTLY IN FINGERS ANY PACEMAKER,DEFIBRILLATOR, OR DORSAL COLUMN STIMULATOR? :NO DO YOU HAVE ANY RASHES OR OPEN SORES? :NO ARE YOU ALLERGIC TO IV DYE? :NO ARE YOU DIABETIC? :YES FSBS: 189 ANY NEW PROBLEMS WITH YOUR MEDICATIONS? :NO HAVE YOU RECEIVED A VACCINE IN THE PAST 30 DAYS? :NO DO YOU PLAN TO RECEIVE A VACCINE IN THE NEXT 21 DAYS? :NO WANTS COVID VACCINE- EDUCATED PATIENT TO WAIT ATLEAST TWO WEEKS BEFORE RECIEVING ANY VACCINE. DO YOU TAKE ANY IMMUNOSUPPRESSIVE MEDICATIONS? :NO ANY HISTORY OF SEIZURES? :NO ANY HISTORY OF CARDIAC ISSUES OR EVENTS? :NO DO YOU HAVE SLEEP APNEA? :NO ANY RECENT HEAD INJURY? :NO DO YOU HAVE ANY NEW INFECTIONS? :NO IS THERE A CHANCE YOU COULD BE ? :NO ARE YOU BREAST FEEDING? :NO WHEN DID YOU LAST EAT? : 11/21/201999 WHEN DID YOU LAST DRINK? : 1100 WHAT DID YOU LAST DRINK? : WATER NAME OF PERSON DRIVING YOU HOME? : CAB DO YOU HAVE ANY OTHER QUESTIONS OR CONCERNS? : - CURRENT MEDICATIONS TAKING ACETAMINOPHEN-CODEINE #3 300-30 MG TABLET 1 TABLET NEEDED ORALLY TWICE A DAY IF NECESSARY FOR SEVERE PAIN MDD 2 #30 TABS SHOULD LAST 30 DAYS, NOTES: 11/20/20 TAKING CLOPIDOGREL BISULFATE 75 MG TABLET 1 TABLET ORALLY ONCE A DAY, NOTES: 11/14/20 TAKING METFORMIN HCL 1000 MG TABLET 1 TABLET WITH A MEAL ORALLY TWICE DAILY, NOTES: 11/22/20 0600 TAKING BASAGLAR KWIKPEN 100 UNIT/ML SOLUTION PEN-INJECTOR 30 UNITS SUBCUTANEOUS ONCE DAILY TAKING ATORVASTATIN CALCIUM 80 MG TABLET 1 TABLET ORALLY ONCE A DAY TAKING PENTIPS 29G X 12MM MISCELLANEOUS DIRECTED SUBCUTANEOUSLY DAILY (E11.9) TAKING ALCOHOL SWABS 70 % PAD DIRECTED TOPICALLY QID (E11.9) TAKING LANCETS - MISCELLANEOUS DIRECTED SUBCUTANEOUSLY TID (E11.9) TAKING TEST STRIPS - DIRECTED (ICD 10: E:11.40) INTRADERMALLY QID TAKING ONETOUCH ULTRA - (DEVICES) MISCELLANEOUS DIRECTED TAKING NICOTINE STEP 2 14 MG/24HR PATCH 24 HOUR 1 PATCH TO SKIN TRANSDERMAL ONCE A DAY NOT-TAKING MAY HAVE TYLENOL #4 PO Q 8 HOURS PRN NOT-TAKING LANTUS SOLOSTAR 100 UNIT/ML SOLUTION PEN-INJECTOR DIRECTED SUBCUTANEOUS NOT-TAKING CETIRIZINE HCL 10 MG TABLET 1 TABLET ORALLY ONCE A DAY NOT-TAKING FAMOTIDINE 20 MG TABLET 1 TABLET AT BEDTIME NEEDED ORALLY ONCE A DAY NOT-TAKING METOPROLOL TARTRATE 50 MG TABLET 1 TABLET WITH FOOD ORALLY TWICE A DAY NOT-TAKING ACETAMINOPHEN-CODEINE #4 300-60 MG TABLET (SCHEDULE III DRUG) TAKE 1 TABLET BY MOUTH EVERY 4 6 HOURS NEEDED FOR PAIN MAXIMUM DAILY DOSE 4 ORAL NOT-TAKING CLOTRIMAZOLE 1 % CREAM 1 APPLICATION EXTERNALLY TWICE A DAY NOT-TAKING ACETAMINOPHEN-CODEINE #3 300-30 MG TABLET (SCHEDULE III DRUG) TAKE ONE TABLET BY MOUTH EVERY 6 HOURS NEEDED FOR PAIN MAXIMUM DAILY DOSE 3 ORAL NOT-TAKING TRAMADOL HCL 50 MG TABLET 1-2 TABLET(S) NEEDED ORALLY EVERY 4-6 HOURS PRN MDD: 5 NOT-TAKING TIZANIDINE HCL 2 MG TABLET 1 TABLET NEEDED ORALLY MAY TAKE UP TO QID PRN NOT-TAKING GABAPENTIN 300 MG TABLET DIRECTED ORALLY NOT-TAKING GUAIFENESIN ER 600 MG TABLET EXTENDED RELEASE 12 HOUR 1 TABLET NEEDED ORALLY EVERY 12 HRS NOT-TAKING NAPROXEN 500 MG TABLET DELAYED RELEASE 1 TABLET ORALLY TWICE A DAY NOT-TAKING OMEPRAZOLE 20 MG CAPSULE DELAYED RELEASE 1 CAPSULE 30 MINUTES BEFORE MORNING MEAL ORALLY ONCE A DAY NOT-TAKING CYCLOBENZAPRINE HCL 10 MG TABLET DIRECTED ORALLY ONCE A DAY NOT-TAKING DICLOFENAC SODIUM 75 MG TABLET DELAYED RELEASE 1 TABLET ORALLY TWICE A DAY NOT-TAKING FLECTOR 1.3 % PATCH 1 PATCH TO SKIN TO MOST PAINFUL AREA EXTERNALLY TWICE A DAY NOT-TAKING DIPHENHYDRAMINE HCL 25 MG CAPSULE 1 CAPSULE AT BEDTIME NEEDED ORALLY ONCE A DAY NOT-TAKING FUROSEMIDE 40 MG TABLET 1 TABLET ORALLY ONCE A DAY NOT-TAKING METHYLPREDNISOLONE (ASHLEY) NOT-TAKING POTASSIUM CHLORIDE ER 20 MEQ TABLET EXTENDED RELEASE 1 TABLET WITH FOOD ORALLY ONCE A DAY NOT-TAKING MOBIC 7.5 MG TABLET 1 TABLET ORALLY ONCE A DAY NOT-TAKING LIDOCAINE 5 % PATCH 1 PATCH REMOVE AFTER 12 HOURS EXTERNALLY ONCE A DAY NOT-TAKING NICOTINE STEP 2 14 MG/24HR PATCH 24 HOUR 1 PATCH TO SKIN TRANSDERMAL ONCE A DAY NOT-TAKING BLOOD GLUCOSE MONITORING SUPPL W/DEVICE KIT DIRECTED DIRECTED TID (E11.9) MEDICATION LIST REVIEWED AND RECONCILED WITH THE PATIENT PAST MEDICAL HISTORY DIABETES [place] 2003, 2016, ON PLAVIX HTN OBESITY ESOPHAGEAL REFLUX INSOMNIA BIPOLAR SMOKING PAIN IN LEFT KNEE CORONARY ARTERIOSCLEROSIS MASS OF JOINT OF RIGHT HAND H. PYLORI G.I. TRACT INFECTION ALLERGIES ASPIRIN: NAUSEA/VOMITING - SIDE EFFECTS TIZANIDINE HCL: PATIENT STATES, "SHE DOEN'T FEEL RIGHT" SOCIAL HISTORY GENERAL: TOBACCO USE ARE YOU A:CURRENT SMOKER ARE YOU INTERESTED IN QUITTING?THINKING ABOUT QUITTING COUNSELED THE PATIENT ON SMOKING CESSATION, EDUCATION [id number]/11/2021 HOW MANY CIGARETTES A DAY DO YOU SMOKE?11-20 VAPORNO E-CIGARETTENO LATEX QUESTIONNAIRE LATEX ALLERGY : HAVE YOU EVER DEVELOPED ANY TYPE OF REACTION AFTER HANDLING LATEX PRODUCTS SUCH RUBBER GLOVES, CONDOMS, DIAPHRAGMS, BALLOONS, SOCKS, OR UNDERWEAR?NO LATEX ALLERGY : HAVE YOU EVER DEVELOPED ANY TYPE OF REACTION DURING OR AFTER DENTAL APPOINTMENT, VAGINAL/RECTAL EXAMINATION, SURGICAL PROCEDURE, OR ANY OTHER EXPOSURE?NO LATEX RISK : HAVE YOU EVER HAD ANY DIFFICULTY BREATHING OR HIVES AFTER EATING OR HANDLING ANY FRUITS, OR VEGETABLES; SUCH KIWI, BANANAS, STONE FRUITS, OR CHESTNUTSNO LATEX RISK : DO YOU HAVE A PREVIOUS PERSONAL HISTORY OF MORE THAN NINE SURGERIES, SPINA BIFIDA, OR REPEATED CATHERIZATIONS? NO LATEX RISK : ARE YOU FREQUENTLY EXPOSED TO LATEX PRODUCTS IN YOUR OCCUPATION?NO DATE ASKED : 11/09/2020 ALCOHOL USE: NO. LUNG CANCER SCREENING SMOKING STATUS: CURRENT SMOKER, IS THE PATIENT BETWEEN THE AGE OF 54 AND 76? YES, HAS THE PATIENT EVER BEEN DIAGNOSED WITH LUNG CANCER? NO, PACK YEARS = NUMBER OF PACKS PER DAY SMOKED X NUMBER OF YEARS SMOKED: 18, CREATE REFERRAL: GENERATE AND CREATE REFERRAL TO THE ONCOLOGY NURSE NAVIGATOR (SMP) LISTING USING THE LDCT SCAN PROCEDURE, DISCLAIMER: PLEASE ADD DISCLAIMER FROM BROWSE SECTION OF THE NOTE. BMI CARE GOAL FOLLOW-UP ABOVE NORMAL BMI FOLLOW-UPGIVING ENCOURAGEMENT TO EXERCISE ALCOHOL SCREENING DID YOU HAVE A DRINK CONTAINING ALCOHOL IN THE PAST YEAR?NO POINTS0 INTERPRETATIONNEGATIVE RECREATIONAL DRUG USE DRUG USE?NO CAFFEINE CAFFEINE USE?YES SEXUAL HX HAD SEX IN THE LAST 12 MONTHS (VAGINAL, ORAL, OR ANAL)?YES WITHMEN ONLY USE PROTECTION?NO HAVE YOU EVER HAD AN STD?NO HIV / HEP-C SCREENING HIV TEST OFFERED TO PATIENT:YES DATE OFFERED:10/29/2019 HEP-C TEST OFFERED TO PATIENT:YES DATE OFFERED:10/29/2019 BROCHURE PROVIDED TO PATIENTYES LEARNING BARRIERS / SPECIAL NEEDS CHANGE FROM LAST VISIT?NO BARRIERS TO LEARNING?NO HEARING IMPAIRED?NO VISION IMPAIRED?YES :CORRECTIVE LENSES COGNITIVELY IMPAIRED?NO READINESS TO LEARN?YES LEARNING PREFERENCES?NO LEARNING CAPABILITIES PRESENT?YES EMOTIONAL BARRIERS?NO SPECIAL DEVICES?NO CERTIFIED ALCOHOL COUNSELOR NEEDED?NO - HAS THE PATIENT BEEN EDUCATED REGARDING HIS/HER PLAN OF CARE?YES HAS THE PATIENT BEEN EDUCATED REGARDING PAIN, THE RISK FOR PAIN, THE IMPORTANCE OF EFFECTIVE PAIN MANAGEMENT, AND THE PAIN ASSESSMENT PROCESS?YES ADVANCE DIRECTIVE ADVANCE DIRECTIVE DISCUSSED WITH PATIENT:YES OFFERED AND DECLINED VITAL SIGNS WT 210.4 LBS, HT 64 IN, BMI 36.11 INDEX, BP 169/79 MM HG, HR 67 /MIN, RR 20 /MIN, TEMP 96.1 F, OXYGEN SAT % 97%, BLOOD GLUCOSE LEVEL 189, SAFE IN ENV? (Y/N) YES, NA INITIALS SC 12:23, REVIEWED BY: APA. EPIFANIO RN. EXAMINATION GENERAL EXAMINATION: THE PATIENT IS ALERT, ORIENTED TIMES THREE AND COOPERATIVE. LUNGS ARE CLEAR TO AUSCULTATION. HEART SHOWS REGULAR RHYTHM, NO MURMURS AND NO GALLOPS. ASSESSMENTS SPONDYLOSIS WITHOUT MYELOPATHY OR RADICULOPATHY, LUMBAR REGION - M47.816 SPONDYLOSIS WITHOUT MYELOPATHY OR RADICULOPATHY, LUMBOSACRAL REGION - M47.817 TREATMENT SPONDYLOSIS WITHOUT MYELOPATHY OR RADICULOPATHY, LUMBAR REGION LAB: FINGERSTICK BLOOD SUGAR (ORDERED FOR 11/22/2020) EPIFANIOEVA R 11/22/2020 12:55:05 PM > FSBS AT HOME: 189 FSBS AT CLINIC: 74 PETRBASILIO,EVA R 11/22/2020 2:30:18 PM > DR. MARTINEZ NOTIFIED OF FSBS AT 1257. OKAY TO PROCEED WITH PROCEDURE PER DR. MARTINEZ. [facility] FACET BLOCK (PAIN)[id number] SALINE LOCKBRADLEY,PATRICIA 11/22/2020 2:13:09 PM > 22 G IV ACCESS OBTAINED IN LEFT HAND ON FIRST ATTEMPT. PATIENT TOLERATED WELL. 1335 TBRADLEYRN COMPLETION OF PROCEDURAL VISIT WHEN MEETS CRITERIAPEMARIBELS,EVA R 11/22/2020 2:24:33 PM > CRITERIA MET PROCEDURES PAIN NURSING RECORD PROCEDURE IN ROOM 1334, PHYSICIAN IN ROOM 1342, START 1345, FINISH 1353, PHYSICIAN OUT OF ROOM 1357, OUT OF ROOM 1402, ECG NORMAL SINUS, PATIENT SHIELDED YES, SAFETY STRAP YES, PREP CHLOROPREP Shanita GALLAGHER RN, DRESSING TEGADERM DR. MARTINEZ LOC: PETRAS,EVA R 11/22/2020 1:47:17 PM > 1. ALERT, ORIENTED RESP: PETRAS,EVA R 11/22/2020 1:47:21 PM > 1. REGULAR, NO DYSPNEA COLOR: PETRAS,EVA R 11/22/2020 1:47:24 PM > 1. PINK SKIN: PETRAS,EVA R 11/22/2020 1:47:28 PM > 1. WARM, DRY POSITION: PETRAS,EVA R 11/22/2020 1:47:31 PM > 1. PRONE VITALS: PETRAS,EVA R 11/22/2020 1:35:49 PM > 197/86, 70, 18, 97% PETRAS,EVA R 11/22/2020 1:48:56 PM > 196/90. 69, 18, 97% PETRAS,EVA R 11/22/2020 1:50:30 PM > 175/80, 71, 20, 97% PETRAS,EVA R 11/22/2020 1:59:59 PM > 143/90, 71, 18, 97% PETRAS,EVA R 11/22/2020 2:07:25 PM > 188/92, 70, 18, 98% PETRAS,EVA R 11/22/2020 2:20:25 PM > 171/102 PETRAS,EVA R 11/22/2020 2:23:48 PM > 145/90 MANUAL COMPLETION OF PROCEDURE APPOINTMENT: POST PAIN 7, DRESSING SITE DRY AND INTACT, IV DISCONTINUED, SITE CLEAR, CATHETER INTACT SL REMOVED, PATIENT TOLERATED WELL, DSD APPLIED, GAIT STEADY, TEACHING COMPLETED, PATIENT ACKNOWLEDGES UNDERSTANDING YES, PROCEDURE APPOINTMENT COMPLETED AT 1427 BY: Alexis GODFREY RN PN LUMBAR FACET BLOCK DIAGNOSTIC PRE PROCEDURE DIAGNOSIS LUMBAR SPONDYLOSIS, LUMBOSACRAL SPONDYLOSIS POST PROCEDURE DIAGNOSIS LUMBAR SPONDYLOSIS, LUMBOSACRAL SPONDYLOSIS PROCEDURE BILATERAL L4-L5 AND BILATERAL L5-S1 FACET BLOCK DIAGNOSTIC NUMBER 1. SURGEON DR. TOBI MARTINEZ VAULT CLERK NONE ANESTHESIA LOCAL PRE PROCEDURE NOTE THE PATIENT WITH HISTORY OF CHRONIC LOW BACK PAIN. I EVALUATED THE PATIENT AND REVIEWED THE CHART. I WENT OVER THE RISKS, ALTERNATIVES, AND BENEFITS ASSOCIATED WITH THIS PROCEDURE. THE PATIENT WOULD LIKE TO PROCEED AND GAVE CONSENT TO PERFORM THE PROCEDURE. AGREED WITH THE PATIENT, WE ARE DOING THIS PROCEDURE TO DETERMINE IF THE PATIENT IS A CANDIDATE FOR A RADIOFREQUENCY ABLATION OF THE FACETS JOINTS. THE PATIENT DENIES UNEXPLAINABLE WEIGHT LOSS, FEVER, CHILLS, OR NEW CHANGES IN URINARY OR BOWEL CONTROL. PATIENT IS COVID-19 NEGATIVE. DESCRIPTION OF PROCEDURE THE PATIENT WAS BROUGHT TO THE PROCEDURE ROOM AND PLACED IN THE PRONE POSITION. THE LUMBOSACRAL AREA WAS CLEANED WITH CHLORAPREP SOLUTION AND DRAPED ASEPTICALLY. THE PROCEDURE WAS DONE UNDER STERILE CONDITIONS. A TIMEOUT WAS PERFORMED WHERE THE CONSENTED SITE WAS VERIFIED WITH EVERYONE IN THE ROOM. UNDER FLUOROSCOPIC GUIDANCE, TARGETS WERE SELECTED AT THE INTERSECTION OF THE RIGHT AND LEFT TRANSVERSE PROCESS OF L4, L5 AND ALA OF S1 WITH ITS RESPECTIVE SUPERIOR ARTICULAR PROCESS WITH A TARGET OF THE MEDIAN BRANCHES OF L3, L4 AND THE DORSAL RAMI OF L5. I CONFIRMED AGAIN THE SITE OF TARGET. LIDOCAINE WAS USED TO NUMB THE SKIN AND THE SUBCUTANEOUS TISSUE BELOW IT. SPINAL NEEDLE, 22-GAUGE, WAS ADVANCED UNDER FLUOROSCOPIC GUIDANCE AND FOLLOWING PATIENT FEEDBACK UNTIL THE TARGETS WERE REACHED. POSITION OF THE NEEDLES WAS VERIFIED WITH AP AND LATERAL VIEWS. AFTER PROPER POSITION OF THE NEEDLES WAS ACHIEVED, ISOVUE-M DYE 30%, 0.1 ML, WAS INJECTED AT EACH SITE SHOWING ADEQUATE SPREAD OF THE DYE. THEN, A SOLUTION OF 0.4 ML OF BUPIVACAINE 0.25% WAS INJECTED AT EACH SITE. THE MEDICATIONS WERE VERIFIED WITH THE NURSE. THERE WAS NO EVIDENCE OF BLOOD, PARESTHESIA OR CEREBROSPINAL FLUID DURING THE PROCEDURE. THE PATIENT WAS SENT TO THE RECOVERY ROOM. THE PATIENT WAS MOVING THE EXTREMITIES AND DOING WELL. THERE WERE NO COMPLICATIONS DURING THE PROCEDURE. ESTIMATED BLOOD LOSS WAS LESS THAN 5 ML. FLUOROSCOPY TIME WAS 38 SECONDS POST PROCEDURE NOTE THE PATIENT WILL DOCUMENT THE PAIN LEVEL AND RESPONSE TO THIS PROCEDURE PER PAIN DIARY. THE PATIENT WILL BE SEEN IN A FOLLOW UP IN THE NEXT FEW WEEKS. FURTHER DETERMINATION FOR THE PATIENT'S CASE WILL BE DONE AT THE NEXT VISIT. INSTRUCTIONS WERE GIVEN, QUESTIONS WERE ANSWERED, AND THE PATIENT EXPRESSED UNDERSTANDING AND AGREED WITH THE PLAN. I, LENO GRIMALDO, DOCUMENTED THE ABOVE INFORMATION ACTING A SCRIBE FOR DR. MARTINEZ. I HAVE REVIEWED THE ABOVE DOCUMENT, WRITTEN BY LENO GRIMALDO, FLAG FOOTBALL COACH, AND I VERIFY THAT IT IS ACCURATE PROCEDURE CODES 62838 INJ PARAVERT F JNT L/S 1 LEV, MODIFIERS: 50 [id number] INJ PARAVERT F JNT C/T 2 LEV, MODIFIERS: 50 DISPOSITION & COMMUNICATION FOLLOW UP FOLLOW UP WITH NEIGHBORHOOD COORDINATOR (REASON: POST BILATERAL DIAGNOSTIC LUMBAR FACET BLOCK L4-L5, L5-S1 #1) ELECTRONICALLY SIGNED BY TOBI MARTINEZ MD, MD ON 11/23/2020 AT 11:48 AM EST DISCLAIMER : THIS IS A VISIT SUMMARY EXTRACTED FROM THE [facility] CHART. IT IS NOT A COPY OF THE [facility] PROGRESS NOTE. MTDD
== END ==
LOC: M PAIN 11:20
PROVIDERS: ATTEND Anesthesiology
DX: M47.816 Spondylosis without myelopathy or radiculopathy, lumbar region (principal); M47.817 Spondylosis without myelopathy or radiculopathy, lumbosacral region; E11.9 Type 2 diabetes mellitus without complications; I25.2 Old myocardial infarction; G47.00 Insomnia, unspecified; F17.210 Nicotine dependence, cigarettes, uncomplicated; Z86.59 Personal history of other mental and behavioral disorders; Z88.6 Allergy status to analgesic agent; Z88.8 Allergy status to other drugs, medicaments and biological substances; Z79.4 Long term (current) use of insulin; Z79.899 Other long term (current) drug therapy
CPT/HCPCS: 64493; 64494; Q9967

== ENCOUNTER → 2020-12-15 | Outpatient (CLI) | payer OTHER ==
[~2020-12-15] MED LIST changes: -BUPIVACAINE HCL 0.25% 30ML VIAL As Ordered ONE; -ISOVUE-M 300 61% 15ML VIAL As Ordered ONE; -LIDOCAINE 1% SDV 30ML VIAL As Ordered ONE
--- NOTE | 2020-12-21 00:50 | ECWPNPC ---
PATIENT NAME: USAMA MARIN : 1965 GENDER: FEMALE VISIT DATE: 12/15/2020 DISCHARGE DATE: 12/15/20 1109 VISIT LOCKED DATE TIME: PHYSICIAN: AMBAR MARTINI PHYSICIAN PAGER NO: ACTIVE RESOURCE: AMBAR MARTINI REASON FOR APPOINTMENT 1. POST BILATERAL DIAGNOSTIC LUMBAR FACET BLOCK L4-5, L5-S1 HISTORY OF PRESENT ILLNESS GENERAL: HERE FOR POST PROCEDURE FOLLOW-UP. HAD BILATERAL DIAGNOSTIC LUMBAR FACET BLOCK L4-5, L5-S1 ON 11/22/2020. REPORTS NO IMPROVEMENT EVEN FOR SHORT TIME POST PROCEDURE. DISCUSSED TREATMENT OPTIONS. SHE WAS STARTED ON TYLENOL WITH CODEINE NO. 30 TABLETS FOR 30 DAYS AT INITIAL VISIT A FEW MONTHS AGO. PATIENT REPORTS SOME IMPROVEMENT BUT SHE HAS USED THIS MEDICATION UP OVER A 2 WEEK TIMEFRAME AND DIDN'T UNDERSTAND THE CONCEPT OF USING PERIODICALLY BECAUSE SHE IS IN PAIN ALL THE TIME. MRI OF THE LUMBAR SPINE IS REVIEWED. THIS IS SHOWING SIGNIFICANT PATHOLOGY TO INCLUDE SPINAL STENOSIS. PATIENT REPORTS ADVERSE REACTION TO GABAPENTIN OF GI UPSET, NAUSEA AND FATIGUE. THIS WAS ON A LOW DOSAGE OF GABAPENTIN. DISCUSSED MEDICATION AND TREATMENT PLAN AT LENGTH WITH PATIENT WHO VOICES UNDERSTANDING.-. FALL RISK SCREENING: SCREENING : NO FALLS REPORTED IN THE LAST YEAR. PAIN SCREENING: PATIENT HAS A COMPLAINT OF ACUTE OR CHRONIC PAIN :YES LOCATION OF PAIN:LOW BACK INTENSITY OF PAIN (SCALE OF 1 TO 10):8 WHAT DOES YOUR PAIN FEEL LIKE:SHARP DURATION:CONTINOUS, CONSTANT, ALL DAY PAIN IS INCREASED BY:OTHERS SITTING TOO LONG PAIN IS DECREASED BY:OTHERS MOVING AROUND HELPS NURSING NOTE: -. PAIN CENTER INTAKE QUESTIONS: DO YOU HAVE A HISTORY OF MRSA? :NO DO YOU TAKE A BLOOD THINNERS? :YES PLAVIX DO YOU HAVE ANY BLEEDING DISORDERS? :NO ANY NEW NUMBNESS OR WEAKNESS IN YOUR LEGS OR ARMS? :NO LEFT ARM GOES INTO FINGERS ANY PACEMAKER,DEFIBRILLATOR, OR DORSAL COLUMN STIMULATOR? :NO DO YOU HAVE ANY RASHES OR OPEN SORES? :NO ARE YOU ALLERGIC TO IV DYE? :NO ARE YOU DIABETIC? :YES ANY NEW PROBLEMS WITH YOUR MEDICATIONS? :NO HAVE YOU RECEIVED A VACCINE IN THE PAST 30 DAYS? :YES IF SO WHAT VACCINE AND WHEN? 1ST COVID 12/11/2020 DO YOU PLAN TO RECEIVE A VACCINE IN THE NEXT 21 DAYS? :YES IF SO WHAT VACCINE AND WHEN? 2ND COVID 01/11/2021 DO YOU NEED ANY PRESCRIPTION? :NO DO YOU TAKE ANY IMMUNOSUPPRESSIVE MEDICATIONS? :NO CURRENT MEDICATIONS TAKING ACETAMINOPHEN-CODEINE #3 300-30 MG TABLET 1 TABLET NEEDED ORALLY TWICE A DAY IF NECESSARY FOR SEVERE PAIN MDD 2 #30 TABS SHOULD LAST 30 DAYS TAKING CLOPIDOGREL BISULFATE 75 MG TABLET 1 TABLET ORALLY ONCE A DAY TAKING METFORMIN HCL 1000 MG TABLET 1 TABLET WITH A MEAL ORALLY TWICE DAILY TAKING BASAGLAR KWIKPEN 100 UNIT/ML SOLUTION PEN-INJECTOR 30 UNITS SUBCUTANEOUS ONCE DAILY TAKING ATORVASTATIN CALCIUM 80 MG TABLET 1 TABLET ORALLY ONCE A DAY TAKING PENTIPS 29G X 12MM MISCELLANEOUS DIRECTED SUBCUTANEOUSLY DAILY (E11.9) TAKING ALCOHOL SWABS 70 % PAD DIRECTED TOPICALLY QID (E11.9) TAKING LANCETS - MISCELLANEOUS DIRECTED SUBCUTANEOUSLY TID (E11.9) TAKING TEST STRIPS - DIRECTED (ICD 10: E:11.40) INTRADERMALLY QID TAKING ONETOUCH ULTRA - (DEVICES) MISCELLANEOUS DIRECTED TAKING NICOTINE STEP 2 14 MG/24HR PATCH 24 HOUR 1 PATCH TO SKIN TRANSDERMAL ONCE A DAY NOT-TAKING MAY HAVE TYLENOL #4 PO Q 8 HOURS PRN NOT-TAKING LANTUS SOLOSTAR 100 UNIT/ML SOLUTION PEN-INJECTOR DIRECTED SUBCUTANEOUS NOT-TAKING CETIRIZINE HCL 10 MG TABLET 1 TABLET ORALLY ONCE A DAY NOT-TAKING FAMOTIDINE 20 MG TABLET 1 TABLET AT BEDTIME NEEDED ORALLY ONCE A DAY NOT-TAKING METOPROLOL TARTRATE 50 MG TABLET 1 TABLET WITH FOOD ORALLY TWICE A DAY NOT-TAKING ACETAMINOPHEN-CODEINE #4 300-60 MG TABLET (SCHEDULE III DRUG) TAKE 1 TABLET BY MOUTH EVERY 4 6 HOURS NEEDED FOR PAIN MAXIMUM DAILY DOSE 4 ORAL NOT-TAKING CLOTRIMAZOLE 1 % CREAM 1 APPLICATION EXTERNALLY TWICE A DAY NOT-TAKING ACETAMINOPHEN-CODEINE #3 300-30 MG TABLET (SCHEDULE III DRUG) TAKE ONE TABLET BY MOUTH EVERY 6 HOURS NEEDED FOR PAIN MAXIMUM DAILY DOSE 3 ORAL NOT-TAKING TRAMADOL HCL 50 MG TABLET 1-2 TABLET(S) NEEDED ORALLY EVERY 4-6 HOURS PRN MDD: 5 NOT-TAKING TIZANIDINE HCL 2 MG TABLET 1 TABLET NEEDED ORALLY MAY TAKE UP TO QID PRN NOT-TAKING GABAPENTIN 300 MG TABLET DIRECTED ORALLY NOT-TAKING GUAIFENESIN ER 600 MG TABLET EXTENDED RELEASE 12 HOUR 1 TABLET NEEDED ORALLY EVERY 12 HRS NOT-TAKING NAPROXEN 500 MG TABLET DELAYED RELEASE 1 TABLET ORALLY TWICE A DAY NOT-TAKING OMEPRAZOLE 20 MG CAPSULE DELAYED RELEASE 1 CAPSULE 30 MINUTES BEFORE MORNING MEAL ORALLY ONCE A DAY NOT-TAKING CYCLOBENZAPRINE HCL 10 MG TABLET DIRECTED ORALLY ONCE A DAY NOT-TAKING DICLOFENAC SODIUM 75 MG TABLET DELAYED RELEASE 1 TABLET ORALLY TWICE A DAY NOT-TAKING FLECTOR 1.3 % PATCH 1 PATCH TO SKIN TO MOST PAINFUL AREA EXTERNALLY TWICE A DAY NOT-TAKING DIPHENHYDRAMINE HCL 25 MG CAPSULE 1 CAPSULE AT BEDTIME NEEDED ORALLY ONCE A DAY NOT-TAKING FUROSEMIDE 40 MG TABLET 1 TABLET ORALLY ONCE A DAY NOT-TAKING METHYLPREDNISOLONE (ASHLEY) NOT-TAKING POTASSIUM CHLORIDE ER 20 MEQ TABLET EXTENDED RELEASE 1 TABLET WITH FOOD ORALLY ONCE A DAY NOT-TAKING MOBIC 7.5 MG TABLET 1 TABLET ORALLY ONCE A DAY NOT-TAKING LIDOCAINE 5 % PATCH 1 PATCH REMOVE AFTER 12 HOURS EXTERNALLY ONCE A DAY NOT-TAKING NICOTINE STEP 2 14 MG/24HR PATCH 24 HOUR 1 PATCH TO SKIN TRANSDERMAL ONCE A DAY NOT-TAKING BLOOD GLUCOSE MONITORING SUPPL W/DEVICE KIT DIRECTED DIRECTED TID (E11.9) MEDICATION LIST REVIEWED AND RECONCILED WITH THE PATIENT PAST MEDICAL HISTORY DIABETES [place] 2003, 2015, ON PLAVIX HTN OBESITY ESOPHAGEAL REFLUX INSOMNIA BIPOLAR SMOKING PAIN IN LEFT KNEE CORONARY ARTERIOSCLEROSIS MASS OF JOINT OF RIGHT HAND H. PYLORI G.I. TRACT INFECTION ALLERGIES ASPIRIN: NAUSEA/VOMITING - SIDE EFFECTS TIZANIDINE HCL: PATIENT STATES, "SHE DOEN'T FEEL RIGHT" SOCIAL HISTORY GENERAL: TOBACCO USE ARE YOU A:CURRENT SMOKER ARE YOU INTERESTED IN QUITTING?THINKING ABOUT QUITTING COUNSELED THE PATIENT ON SMOKING CESSATION, EDUCATION CEFEESGH72/19/2021 HOW MANY CIGARETTES A DAY DO YOU SMOKE?- VAPORNO E-CIGARETTENO LATEX QUESTIONNAIRE LATEX ALLERGY : HAVE YOU EVER DEVELOPED ANY TYPE OF REACTION AFTER HANDLING LATEX PRODUCTS SUCH RUBBER GLOVES, CONDOMS, DIAPHRAGMS, BALLOONS, SOCKS, OR UNDERWEAR?NO LATEX ALLERGY : HAVE YOU EVER DEVELOPED ANY TYPE OF REACTION DURING OR AFTER DENTAL APPOINTMENT, VAGINAL/RECTAL EXAMINATION, SURGICAL PROCEDURE, OR ANY OTHER EXPOSURE?NO LATEX RISK : HAVE YOU EVER HAD ANY DIFFICULTY BREATHING OR HIVES AFTER EATING OR HANDLING ANY FRUITS, OR VEGETABLES; SUCH KIWI, BANANAS, STONE FRUITS, OR CHESTNUTSNO LATEX RISK : DO YOU HAVE A PREVIOUS PERSONAL HISTORY OF MORE THAN NINE SURGERIES, SPINA BIFIDA, OR REPEATED CATHERIZATIONS? NO LATEX RISK : ARE YOU FREQUENTLY EXPOSED TO LATEX PRODUCTS IN YOUR OCCUPATION?NO DATE ASKED : 12/15/2020 ALCOHOL USE: NO. LUNG CANCER SCREENING SMOKING STATUS: CURRENT SMOKER, IS THE PATIENT BETWEEN THE AGE OF 54 AND 76? YES, HAS THE PATIENT EVER BEEN DIAGNOSED WITH LUNG CANCER? NO, PACK YEARS = NUMBER OF PACKS PER DAY SMOKED X NUMBER OF YEARS SMOKED: 18, CREATE REFERRAL: GENERATE AND CREATE REFERRAL TO THE ONCOLOGY NURSE NAVIGATOR (SMP) LISTING USING THE LDCT SCAN PROCEDURE, DISCLAIMER: PLEASE ADD DISCLAIMER FROM BROWSE SECTION OF THE NOTE. BMI CARE GOAL FOLLOW-UP ABOVE NORMAL BMI FOLLOW-UPGIVING ENCOURAGEMENT TO EXERCISE ALCOHOL SCREENING DID YOU HAVE A DRINK CONTAINING ALCOHOL IN THE PAST YEAR?NO POINTS0 INTERPRETATIONNEGATIVE RECREATIONAL DRUG USE DRUG USE?NO CAFFEINE CAFFEINE USE?YES SEXUAL HX HAD SEX IN THE LAST 12 MONTHS (VAGINAL, ORAL, OR ANAL)?YES WITHMEN ONLY USE PROTECTION?NO HAVE YOU EVER HAD AN STD?NO HIV / HEP-C SCREENING HIV TEST OFFERED TO PATIENT:YES DATE OFFERED:10/29/2019 HEP-C TEST OFFERED TO PATIENT:YES DATE OFFERED:10/29/2019 BROCHURE PROVIDED TO PATIENTYES LEARNING BARRIERS / SPECIAL NEEDS CHANGE FROM LAST VISIT?NO BARRIERS TO LEARNING?NO HEARING IMPAIRED?NO VISION IMPAIRED?YES :CORRECTIVE LENSES COGNITIVELY IMPAIRED?NO READINESS TO LEARN?YES LEARNING PREFERENCES?NO LEARNING CAPABILITIES PRESENT?YES EMOTIONAL BARRIERS?NO SPECIAL DEVICES?NO VERTICA ARCHITECT NEEDED?NO - HAS THE PATIENT BEEN EDUCATED REGARDING HIS/HER PLAN OF CARE?YES HAS THE PATIENT BEEN EDUCATED REGARDING PAIN, THE RISK FOR PAIN, THE IMPORTANCE OF EFFECTIVE PAIN MANAGEMENT, AND THE PAIN ASSESSMENT PROCESS?YES ADVANCE DIRECTIVE ADVANCE DIRECTIVE DISCUSSED WITH PATIENT:YES OFFERED AND DECLINED REVIEW OF SYSTEMS CONSTITUTIONAL: ANY RECENT FEVER NO . CHILLS NO . WEIGHT CHANGE OF UNKNOWN REASONS NO . GASTROENTEROLOGY: NEW UNEXPLAINABLE CHANGES IN BOWEL CONTROL NO . CONSTIPATION NO . GENITOURINARY: ANY NEW CHANGE IN BLADDER CONTROL? NO . NEUROLOGY: NEW ONSET DIZZINESS OR NEUROLOGICAL CHANGES NOT MENTIONED NO . NEW NUMBNESS OR PAIN PATTERNS NOT MENTIONED AND PERTINENT TO TODAY'S VISIT NO . CARDIOLOGY: NEW CHEST PRESSURE NO . PATIENT DENIES NO . RESPIRATORY: UNEXPLAINABLE COUGH NO . NEW SHORTNESS OF BREATH NO . VITAL SIGNS WT 211 LBS, HT 64 IN, BMI 36.21 INDEX, BP 141/85 MM HG, HR 67 /MIN, RR 19 /MIN, TEMP 97.2 F, OXYGEN SAT % 98%, SAFE IN ENV? (Y/N) YEST.DAHLIA KIRKLAND. EXAMINATION GENERAL EXAMINATION: GENERALAWAKE,ALERT ,PLEASANT . PSYCHAFFECT NORMAL . LUNGS:LUNG GOINS ARE CLEAR TO AUSCULTATION BILATERALLY. GOOD MOVEMENT OF AIR . HEART:S1, S2 IN A REGULAR RATE AND RHYTHM. NO SIGNIFICANT MURMURS, RUBS OR GALLOPS NOTED . ASSESSMENTS OTHER CHRONIC PAIN - G89.29 (PRIMARY) DIABETIC PERIPHERAL NEUROPATHY - E11.42 DEGENERATIVE LUMBAR SPINAL STENOSIS - M48.061 TREATMENT OTHER CHRONIC PAIN REFILL ACETAMINOPHEN-CODEINE #3 TABLET, 300-30 MG, 1 TABLET NEEDED, ORALLY, TWICE A DAY IF NECESSARY FOR SEVERE PAIN MDD 2 #30 TABS SHOULD LAST 30 DAYS, 30 DAYS, 30, REFILLS 0 START LYRICA CAPSULE, 100 MG, 1 CAPSULE, ORALLY, BID, 30 DAYS, 60 CAPSULE, REFILLS 2 PAIN PROCEDURE LOGDATE OF PROCEDURE1PROCEDURE:BILATERAL DIAGNOSTIC LUMBAR FACET BLOCK #1 L4-L5,L5-J5KRTIFL OF PRE SEDATE0/0RESULT:NO IMPROVEMENT NOTES: PATIENT HAS SEVERE NEUROPATHY IN LOWER EXTREMITIES. HISTORY OF ADVERSE REACTION WITH GABAPENTIN TRIALS. RECOMMEND STARTING LYRICA 100 MG TWICE A DAY. CONTINUE WITH PERIODIC USE OF TYLENOL WITH CODEINE FOR SEVERE PAIN EPISODES. FOLLOW-UP IS SCHEDULED IN 2 MONTHS. , ISTOP REGISTRY REVIEWED AND DEMONSTRATES COMPLLIANCE. PROCEDURE CODES FA211 ESTABILISHED PATIENT MERGED WITH [facility] CHARGE DISPOSITION & COMMUNICATION FOLLOW UP 2 MONTHS (REASON: MEDICATION MANAGEMENT/URINE TOXICOLOGY) ELECTRONICALLY SIGNED BY JHOAN MAGALLANES ON 12/20/2020 AT 01:21 PM EDT DISCLAIMER : THIS IS A VISIT SUMMARY EXTRACTED FROM THE [email or web address] CHART. IT IS NOT A COPY OF THE [email or web address] PROGRESS NOTE. JESUS
== END ==
LOC: M PAIN 10:15
PROVIDERS: ATTEND Nurse Practitioner Family
DX: G89.29 Other chronic pain (principal); E11.42 Type 2 diabetes mellitus with diabetic polyneuropathy; M48.061 Spinal stenosis, lumbar region without neurogenic claudication; I25.2 Old myocardial infarction; G47.00 Insomnia, unspecified; F17.210 Nicotine dependence, cigarettes, uncomplicated; Z86.59 Personal history of other mental and behavioral disorders; Z88.6 Allergy status to analgesic agent; Z88.8 Allergy status to other drugs, medicaments and biological substances; Z79.4 Long term (current) use of insulin; Z79.899 Other long term (current) drug therapy

== ENCOUNTER → 2021-06-27 | Outpatient (CLI) | payer OTHER ==
--- NOTE | 2021-06-27 10:50 | DEXAMM ---
INDICATION: ASYMPOTMATIC MENOPAUSAL STATE. COMPARISON: None. TECHNIQUE: Bone density was measured using dual-energy x-ray absorptionmetry (DEXA). FINDINGS: AP SPINE L1-L4 BMD 1.360 g/cm2 Young Adult T-Score 1.3 Age Matched Z-Score 2.3. LT FEMUR, TOTAL BMD 1.078 g/cm2 Young Adult T-Score 0.6 Age Matched Z-Score 1.3. LT NECK BMD 1.036 g/cm2 Young Adult T-Score 0.0 Age Matched Z-Score 1.1. RT FEMUR, TOTAL BMD 1.106 g/cm2 Young Adult T-Score is 0.8 Age Matched Z-Score 1.6. RT NECK BMD is 1.024 g/cm2 Young Adult T-Score -0.1 Age Matched Z-Score 1.0. IMPRESSION: There is normal bone density of the spine. There is normal bone density of the left hip. There is normal bone density of the right hip. FOLLOW-UP: Recommendation for the next bone density exam: 5-10 years. <Electronically signed by Kraig Evangelista > 06/27/21 0615
== END ==
LOC: M WHC 09:22
PROVIDERS: ATTEND Pediatrics
DX: Z78.0 Asymptomatic menopausal state (principal)

== ENCOUNTER → 2021-07-11 | Outpatient (CLI) | payer OTHER ==
--- NOTE | 2021-07-11 15:21 | REP ---
INDICATION: SCREENING FOR LUNG CA. COMPARISON: 03/22/[address] angio of the chest TECHNIQUE: Axial noncontrast images from the thoracic inlet to the upper abdomen using low-dose lung screening technique (LDCT). As per the protocol only lung window images were sent to the read station for interpretation. FINDINGS: There are no abnormal nodules. The lung cabello are essentially unchanged compared to the prior exam. Grossly, the mediastinum and pulmonary andrez are stable. Grossly, the imaged upper abdomen and imaged osseous structures are stable. IMPRESSION: Lung rads category 1 low-dose screening CT of the lungs. There are no abnormal nodules. <Electronically signed by Neftaly Kumar > 07/11/21 0574
== END ==
LOC: M RAD 13:31
PROVIDERS: ATTEND Pediatrics
DX: Z12.2 Encounter for screening for malignant neoplasm of respiratory organs (principal); F17.200 Nicotine dependence, unspecified, uncomplicated

== ENCOUNTER 2021-11-21 14:15 | Outpatient (RCR) | payer OTHER ==
[~2021-11-21 14:15] MED LIST changes: +POTA-151 PO; -POTA20TA6 PO
== END 2021-11-26 ==
LOC: M PT 14:15
PROVIDERS: ATTEND Physician Assistant
DX: M17.11 Unilateral primary osteoarthritis, right knee (principal)

== ENCOUNTER 2021-12-17 11:00 | Outpatient (RCR) | payer OTHER | END 2021-12-27 | LOC: M PT 11:00 | PROVIDERS: ATTEND Physician Assistant | DX: M17.11 Unilateral primary osteoarthritis, right knee (principal) ==

== ENCOUNTER 2022-01-08 13:00 | Outpatient (RCR) | payer OTHER | END 2022-01-26 | LOC: M PT 13:00 | PROVIDERS: ATTEND Physician Assistant | DX: M17.11 Unilateral primary osteoarthritis, right knee (principal) ==

== ENCOUNTER → 2022-07-29 | Outpatient (REF) | payer OTHER ==
[2022-07-29 17:55] LABS: BASO % 0.5 % (0.0-1.0); EOS # 0.2 10^3/uL (0.0-0.5); HEMATOCRIT 40.3 % (36.0-47.0); HEMOGLOBIN 13.1 g/dl (12.0-15.5); LYMPH # 1.9 10^3/uL (1.5-5.0); LYMPH % 23.7 % (24.0-44.0); MEAN CORPUSCULAR HEMOGLOBIN 27.6 pg (27.0-33.0); MEAN CORPUSCULAR HGB CONC 32.5 g/dl (32.0-36.5); MONO # 0.5 10^3/uL (0.0-0.8); MONO % 6.1 % (2.0-8.0); NEUTROPHILS # 5.4 10^3/uL (1.5-8.5); NEUTROPHILS % 66.5 % (36.0-66.0); PLATELET COUNT, AUTOMATED 203 10^3/uL (150-450); RED BLOOD COUNT 4.74 10^6/uL (4.00-5.40); WHITE BLOOD COUNT 8.1 10^3/uL (4.0-10.0)
[2022-07-29 18:39] LABS: MAU/CREAT RATIO 11.7 MCG/MG (0.0-30.0)
[2022-07-29 18:46] LABS: ALBUMIN 3.7 GM/DL (3.2-5.2); ALT/SGPT 42 U/L (12-78); BILIRUBIN,TOTAL 0.4 MG/DL (0.2-1.0); BLOOD UREA NITROGEN 13 MG/DL (7-18); CALCIUM LEVEL 9.2 MG/DL (8.5-10.1); CARBON DIOXIDE LEVEL 28 MEQ/L (21-32); CHLORIDE LEVEL 104 MEQ/L (98-107); CHOLESTEROL LEVEL 117 MG/DL (<200); CHOLESTEROL RISK RATIO 4.034 (<5); CREATININE FOR GFR 0.79 MG/DL (0.55-1.30); GLOMERULAR FILTRATION RATE > 60.0 (>51); GLUCOSE, FASTING 194 MG/DL (70-100); HDL CHOLESTEROL 29 MG/DL (>40); LDL CHOLESTEROL 44 MG/DL (<100); NON-HDL-C 88 MG/DL; POTASSIUM SERUM 4.4 MEQ/L (3.5-5.1); SODIUM LEVEL 138 MEQ/L (136-145); THYROID STIMULATING HORMONE 0.804 uIU/ML (0.358-3.740); TOTAL PROTEIN 6.5 GM/DL (6.4-8.2); TRIGLYCERIDES LEVEL 219 MG/DL (<150)
== END ==
LOC: M LAB REF 16:57
PROVIDERS: ATTEND Pediatrics
DX: E11.9 Type 2 diabetes mellitus without complications (principal)

== ENCOUNTER → 2022-11-20 | Outpatient (CLI) | payer OTHER | LOC: M SOG 08:08 | PROVIDERS: ATTEND Orthopaedic Surgery | DX: M25.761 Osteophyte, right knee (principal); M25.762 Osteophyte, left knee; M43.16 Spondylolisthesis, lumbar region ==

== ENCOUNTER 2022-11-30 14:53 | Emergency (ER) | payer OTHER ==
[~2022-11-30] VITALS: Ht 162.6 cm; Wt 87.7 kg
[2022-11-30] MEDS ORDERED: NS 1,000 ML IV ONE ×2 (15:35→16:50)
[2022-11-30 15:47] LABS: BASO % 0.5 % (0.0-1.0); EOS % 0.5 % (0.0-3.0); HEMATOCRIT 36.6 % (36.0-47.0); HEMOGLOBIN 12.2 g/dl (12.0-15.5); LYMPH # 0.7 10^3/uL (1.5-5.0); LYMPH % 19.2 % (24.0-44.0); MEAN CORPUSCULAR HEMOGLOBIN 28.2 pg (27.0-33.0); MEAN CORPUSCULAR HGB CONC 33.3 g/dl (32.0-36.5); MEAN CORPUSCULAR VOLUME 84.7 fl (80.0-96.0); MONO # 0.6 10^3/uL (0.0-0.8); MONO % 15.7 % (2.0-8.0); NEUTROPHILS # 2.4 10^3/uL (1.5-8.5); NEUTROPHILS % 63.8 % (36.0-66.0); PLATELET COUNT, AUTOMATED 122 10^3/uL (150-450); RED BLOOD COUNT 4.32 10^6/uL (4.00-5.40); WHITE BLOOD COUNT 3.8 10^3/uL (4.0-10.0)
[2022-11-30 16:18] LABS: BLOOD UREA NITROGEN 14 MG/DL (9-23); CALCIUM LEVEL 7.9 MG/DL (8.5-10.1); CARBON DIOXIDE LEVEL 24 MMOL/L (20-31); CHLORIDE LEVEL 102 MMOL/L (98-107); CREATININE FOR GFR 0.95 MG/DL (0.55-1.30); GLOMERULAR FILTRATION RATE > 60.0 (>51); GLUCOSE, FASTING 161 MG/DL (60-100); POTASSIUM SERUM 3.8 MMOL/L (3.5-5.1); SODIUM LEVEL 135 MMOL/L (136-145)
[2022-11-30 16:20] LABS: RSV AMPLIFICATION NEGATIVE (NEGATIVE)
[2022-11-30 16:20] LABS: THYROID STIMULATING HORMONE 0.684 uIU/ML (0.55-4.78)
[2022-11-30] MEDS ORDERED: DERMABOND TOPICAL SKIN ADHESIVE TOP ONE (16:20)
[2022-11-30] MEDS ORDERED: KETOROLAC 30 MG/ML 1ML VIAL IV ONE (16:20)
[2022-11-30 18:31] VITALS: BP 113/78
== END 2022-11-30 18:32 | disposition home or self-care (01) ==
LOC: EDBD 14:53 → M ED 14:53
DX: U07.1 COVID-19 (principal); R55 Syncope and collapse; F12.10 Cannabis abuse, uncomplicated; R00.1 Bradycardia, unspecified; I44.0 Atrioventricular block, first degree; I45.10 Unspecified right bundle-branch block; I25.2 Old myocardial infarction; E11.9 Type 2 diabetes mellitus without complications; F17.200 Nicotine dependence, unspecified, uncomplicated; I10 Essential (primary) hypertension; Z86.79 Personal history of other diseases of the circulatory system; Z79.84 Long term (current) use of oral hypoglycemic drugs; Z79.4 Long term (current) use of insulin; Z79.02 Long term (current) use of antithrombotics/antiplatelets; Z79.899 Other long term (current) drug therapy
CPT/HCPCS: 70450; 72125; 80048; 84443; 85025; 87631; 93005; 93041; 94760; 96361; 96374; 99285; J1885

== ENCOUNTER 2023-01-25 23:45 | Emergency (ER) | payer OTHER ==
[~2023-01-25] VITALS: Ht 162.6 cm; Wt 95.5 kg
[2023-01-25 23:57] VITALS: BP 153/76
[2023-01-26] MEDS ORDERED: LISI20TA33 (00:14)
[2023-01-26] MEDS ORDERED: METO1TAB87 (00:14)
== END 2023-01-26 01:21 | disposition left against medical advice (07) ==
LOC: EDBD 23:45 → M ED 23:45
DX: Z53.21 Procedure and treatment not carried out due to patient leaving prior to being seen by health care provider (principal)

== ENCOUNTER → 2023-05-08 | Outpatient (CLI) | payer OTHER ==
[~2023-05-08] MED LIST changes: +DICY-61 PO; -DICY10CA13 PO; +LISI20TA33; +METO1TAB87
== END ==
LOC: M RAD 09:25
PROVIDERS: ATTEND Pediatrics
DX: Z12.2 Encounter for screening for malignant neoplasm of respiratory organs (principal)

== ENCOUNTER → 2023-09-11 | Outpatient (CLI) | payer OTHER ==
[~2023-09-11] MED LIST changes: +GABA-1171; +REGL10TA6 PO
== END ==
LOC: M RAD 11:08
PROVIDERS: ATTEND Pediatrics
DX: I73.9 Peripheral vascular disease, unspecified (principal)

== ENCOUNTER → 2023-12-08 | Outpatient (REF) | payer OTHER ==
[2023-12-08 19:26] LABS: URIC ACID 5.5 MG/DL (3.1-7.8)
[2023-12-08 19:29] LABS: ALBUMIN 4.1 G/DL (3.2-5.2); ALKALINE PHOSPHATASE 127 U/L (46-116); ALT/SGPT 60 U/L (7.0-40); AST/SGOT 21 U/L (<34); BILIRUBIN,TOTAL 0.3 MG/DL (0.3-1.2); BLOOD UREA NITROGEN 11 MG/DL (9-23); CALCIUM LEVEL 8.7 MG/DL (8.5-10.1); CARBON DIOXIDE LEVEL 23 MMOL/L (20-31); CHLORIDE LEVEL 108 MMOL/L (98-107); CREATININE FOR GFR 0.75 MG/DL (0.55-1.30); GLOMERULAR FILTRATION RATE > 60.0 (>51); GLUCOSE, FASTING 141 MG/DL (60-100); SODIUM LEVEL 138 MMOL/L (136-145); TOTAL PROTEIN 6.6 G/DL (5.7-8.2)
[2023-12-08 19:31] LABS: RHEUMATOID FACTOR QUANT < 3.5 IU/ML (<14)
[2023-12-11 23:09] LABS: ANA (HEP2) Negative (.); CYCLIC CITRULLINATED PEPTIDE 2 units (0-19)
== END ==
LOC: M LAB REF 18:29
PROVIDERS: ATTEND Pediatrics
DX: M25.50 Pain in unspecified joint (principal)

== ENCOUNTER → 2023-12-11 | Outpatient (CLI) | payer OTHER | LOC: M WHC 09:46 | PROVIDERS: ATTEND Pediatrics | DX: Z12.31 Encounter for screening mammogram for malignant neoplasm of breast (principal); Z13.820 Encounter for screening for osteoporosis ==

== ENCOUNTER 2024-04-29 20:40 | Emergency (ER) | payer OTHER ==
[~2024-04-29] VITALS: Ht 162.6 cm; Wt 96.6 kg
[2024-04-29] MEDS: ACETAMINOPHEN TAB 650MG DOSE (2X325MG) PO ONE (23:18)
[2024-04-30] MEDS ORDERED: NAPR-837 PO (06:06)
[2024-04-30] MEDS: NAPROXEN 250 MG TAB PO ONE (06:26)
[2024-04-30 06:36] VITALS: BP 136/86; TEMP 98.6; O2SAT 97
== END 2024-04-30 06:39 | disposition home or self-care (01) ==
LOC: M ED 20:40 → EDBD 20:40 → M ED 04-30 06:39
DX: S50.311A Abrasion of right elbow, initial encounter (principal); V21.41XA Electric (assisted) bicycle driver injured in collision with pedal cycle in traffic accident, initial encounter; I10 Essential (primary) hypertension; E11.9 Type 2 diabetes mellitus without complications; F17.200 Nicotine dependence, unspecified, uncomplicated; F10.10 Alcohol abuse, uncomplicated; Z87.442 Personal history of urinary calculi; Z79.01 Long term (current) use of anticoagulants; Y92.410 Unspecified street and highway as the place of occurrence of the external cause; Y93.89 Activity, other specified; Y99.9 Unspecified external cause status; Z86.79 Personal history of other diseases of the circulatory system; Z79.02 Long term (current) use of antithrombotics/antiplatelets; Z79.4 Long term (current) use of insulin; Z79.811 Long term (current) use of aromatase inhibitors; Z79.899 Other long term (current) drug therapy

== ENCOUNTER → 2024-05-24 | Outpatient (REF) | payer OTHER ==
[~2024-05-24] MED LIST changes: +NAPR-837 PO
[2024-05-24 11:49] LABS: BASO # 0.1 10^3/uL (0.0-0.2); BASO % 0.9 % (0.0-1.0); EOS # 0.4 10^3/uL (0.0-0.5); EOS % 5.4 % (0.0-3.0); HEMATOCRIT 44.4 % (36.0-47.0); HEMOGLOBIN 14.2 g/dl (12.0-15.5); LYMPH # 2.2 10^3/uL (1.5-5.0); LYMPH % 31.3 % (24.0-44.0); MEAN CORPUSCULAR HEMOGLOBIN 28.2 pg (27.0-33.0); MEAN CORPUSCULAR VOLUME 88.1 fl (80.0-96.0); MONO # 0.5 10^3/uL (0.0-0.8); MONO % 7.2 % (2.0-8.0); NEUTROPHILS # 3.8 10^3/uL (1.5-8.5); NEUTROPHILS % 54.9 % (36.0-66.0); PLATELET COUNT, AUTOMATED 172 10^3/uL (150-450); RED BLOOD COUNT 5.04 10^6/uL (4.00-5.40)
[2024-05-24 11:56] LABS: ALKALINE PHOSPHATASE 123 U/L (46-116); ALT/SGPT 41 U/L (7.0-40); AST/SGOT 19 U/L (<34); BILIRUBIN,TOTAL 0.5 MG/DL (0.3-1.2); BLOOD UREA NITROGEN 13 MG/DL (9-23); CALCIUM LEVEL 9.4 MG/DL (8.3-10.6); CARBON DIOXIDE LEVEL 25 MMOL/L (20-31); CHLORIDE LEVEL 110 MMOL/L (98-107); CHOLESTEROL LEVEL 147 MG/DL (<200); CHOLESTEROL RISK RATIO 4.27 (<5); CREATININE FOR GFR 0.83 MG/DL (0.55-1.30); GLOMERULAR FILTRATION RATE > 60.0 (>45); GLUCOSE, FASTING 94 MG/DL (74-106); HDL CHOLESTEROL 34.4 MG/DL (>40); NON-HDL-C 112.6 MG/DL; POTASSIUM SERUM 4.1 MMOL/L (3.5-5.1); SODIUM LEVEL 142 MMOL/L (136-145); TOTAL PROTEIN 6.6 G/DL (5.7-8.2); TRIGLYCERIDES LEVEL 183 MG/DL (<150)
[2024-05-24 11:57] LABS: THYROID STIMULATING HORMONE 2.181 uIU/ML (0.55-4.78)
[2024-05-24 12:30] LABS: HEMOGLOBIN A1c 6.7 % (4.0-6.0)
== END ==
LOC: M LAB REF 11:34
PROVIDERS: ATTEND Pediatrics
DX: E66.09 Other obesity due to excess calories (principal); I25.10 Atherosclerotic heart disease of native coronary artery without angina pectoris; I25.119 Atherosclerotic heart disease of native coronary artery with unspecified angina pectoris

== ENCOUNTER 2024-05-30 00:31 | Emergency (ER) | payer OTHER ==
[~2024-05-30] VITALS: Ht 162.6 cm; Wt 96.1 kg
[2024-05-30 01:27] LABS: BASO % 0.3 % (0.0-1.0); EOS # 0.4 10^3/uL (0.0-0.5); HEMATOCRIT 41.3 % (36.0-47.0); HEMOGLOBIN 13.9 g/dl (12.0-15.5); LYMPH # 1.8 10^3/uL (1.5-5.0); LYMPH % 18.4 % (24.0-44.0); MEAN CORPUSCULAR HEMOGLOBIN 28.7 pg (27.0-33.0); MEAN CORPUSCULAR HGB CONC 33.7 g/dl (32.0-36.5); MEAN CORPUSCULAR VOLUME 85.2 fl (80.0-96.0); MONO # 0.5 10^3/uL (0.0-0.8); MONO % 5.5 % (2.0-8.0); NEUTROPHILS # 6.9 10^3/uL (1.5-8.5); NEUTROPHILS % 71.5 % (36.0-66.0); PLATELET COUNT, AUTOMATED 170 10^3/uL (150-450); RED BLOOD COUNT 4.85 10^6/uL (4.00-5.40); WHITE BLOOD COUNT 9.7 10^3/uL (4.0-10.0)
[2024-05-30 01:46] LABS: LIPASE 52 U/L (12-53)
[2024-05-30 01:49] LABS: ALBUMIN 3.9 G/DL (3.2-5.2); ALKALINE PHOSPHATASE 130 U/L (46-116); ALT/SGPT 45 U/L (7.0-40); AST/SGOT 15 U/L (<34); BILIRUBIN,DIRECT < 0.1 MG/DL (<0.4); BILIRUBIN,TOTAL 0.2 MG/DL (0.3-1.2); BLOOD UREA NITROGEN 21 MG/DL (9-23); CALCIUM LEVEL 9.6 MG/DL (8.3-10.6); CARBON DIOXIDE LEVEL 28 MMOL/L (20-31); CHLORIDE LEVEL 103 MMOL/L (98-107); CREATININE FOR GFR 0.92 MG/DL (0.55-1.30); GLOMERULAR FILTRATION RATE > 60.0 (>45); GLUCOSE, FASTING 174 MG/DL (74-106); POTASSIUM SERUM 3.8 MMOL/L (3.5-5.1); SODIUM LEVEL 140 MMOL/L (136-145); TOTAL PROTEIN 6.3 G/DL (5.7-8.2)
[2024-05-30] MEDS: NS 1,000 ML IV ONE (06:15)
[2024-05-30 09:41] VITALS: BP 143/83; TEMP 97.8; O2SAT 100
== END 2024-05-30 10:02 | disposition home or self-care (01) ==
LOC: M ED 00:31
DX: R11.10 Vomiting, unspecified (principal); R19.7 Diarrhea, unspecified; K21.9 Gastro-esophageal reflux disease without esophagitis; I25.2 Old myocardial infarction; E11.9 Type 2 diabetes mellitus without complications; I10 Essential (primary) hypertension; E78.5 Hyperlipidemia, unspecified; F17.200 Nicotine dependence, unspecified, uncomplicated; F10.10 Alcohol abuse, uncomplicated; Z79.84 Long term (current) use of oral hypoglycemic drugs; Z79.02 Long term (current) use of antithrombotics/antiplatelets; Z79.811 Long term (current) use of aromatase inhibitors; Z79.899 Other long term (current) drug therapy

== ENCOUNTER 2024-11-06 14:29 | Emergency (ER) | payer OTHER ==
[~2024-11-06] VITALS: Ht 162.6 cm; Wt 95.5 kg
[~2024-11-06 14:29] MED LIST changes: -CYCL5TAB PO; +CYCL5TAB4 PO; +GABA-1172 PO; -GABA-282 PO
[2024-11-06] MEDS ORDERED: LANTINJ4 (14:58)
[2024-11-06] MEDS: KETOROLAC 30 MG/ML 1ML VIAL IM ONE (17:04)
[2024-11-06] MEDS ORDERED: IBUP80TA PO (17:30)
[2024-11-06 17:45] VITALS: BP 138/68; TEMP 97.5; O2SAT 97
== END 2024-11-06 17:49 | disposition home or self-care (01) ==
LOC: M ED 14:29 → EDBD 14:29 → M ED 17:49
DX: S80.11XA Contusion of right lower leg, initial encounter (principal); W50.0XXA Accidental hit or strike by another person, initial encounter; I10 Essential (primary) hypertension; F17.200 Nicotine dependence, unspecified, uncomplicated; Z86.79 Personal history of other diseases of the circulatory system; Z79.02 Long term (current) use of antithrombotics/antiplatelets; Z79.4 Long term (current) use of insulin; Z79.811 Long term (current) use of aromatase inhibitors; Y92.009 Unspecified place in unspecified non-institutional (private) residence as the place of occurrence of the external cause; Y93.89 Activity, other specified; Y99.9 Unspecified external cause status
CPT/HCPCS: 73564; 73590; 96372; 99284; J1885

== ENCOUNTER → 2025-04-25 | Outpatient (REF) | payer OTHER ==
[~2025-04-25] MED LIST changes: +IBUP80TA PO; +LANTINJ4; +LIDO1ADH93 TD; -LIDO5DIS41 TD
[2025-04-25 17:35] LABS: CREATININE, URINE 148.5 MG/DL
[2025-04-25 17:36] LABS: MALB URINE SIEMENS 5.0 MG/L; MAU/CREAT RATIO 3.3 MCG/MG (0.0-30.0)
[2025-04-25 19:33] LABS: ALT/SGPT 45.0 U/L (7.0-40); AST/SGOT 27.0 U/L (<34); CALCIUM LEVEL 9.0 MG/DL (8.3-10.6); CARBON DIOXIDE LEVEL 28.0 MMOL/L (20-31); CHLORIDE LEVEL 103.0 MMOL/L (98-107); CHOLESTEROL LEVEL 145.0 MG/DL (<200); CHOLESTEROL RISK RATIO 3.83 (<5); CREATININE FOR GFR 1.07 MG/DL (0.55-1.30); GLOMERULAR FILTRATION RATE 59.1 (>45); LDL CHOLESTEROL 53.8 MG/DL (<100); NON-HDL-C 107.2 MG/DL; POTASSIUM SERUM 4.4 MMOL/L (3.5-5.1); SODIUM LEVEL 143.0 MMOL/L (136-145); TRIGLYCERIDES LEVEL 267.0 MG/DL (<150)
[2025-04-25 19:44] LABS: ESTIMATED AVERAGE GLUCOSE 140.0 MG/DL (60-110)
== END ==
LOC: M LAB REF 16:32
PROVIDERS: ATTEND Pediatrics
DX: E66.09 Other obesity due to excess calories (principal)

== ENCOUNTER 2025-05-04 13:19 | Emergency (ER) | payer OTHER ==
[~2025-05-04] VITALS: Ht 162.6 cm; Wt 92.3 kg
[2025-05-04 14:19] LABS: BASO # 0.0 10^3/uL (0.0-0.2); BASO % 0.5 % (0.0-1.0); EOS # 0.4 10^3/uL (0.0-0.5); EOS % 4.9 % (0.0-3.0); LYMPH # 2.4 10^3/uL (1.5-5.0); LYMPH % 26.7 % (24.0-44.0); MONO # 0.5 10^3/uL (0.0-0.8); MONO % 5.3 % (2.0-8.0); NEUTROPHILS # 5.5 10^3/uL (1.5-8.5); NEUTROPHILS % 62.3 % (36.0-66.0); PLATELET COUNT, AUTOMATED 201 10^3/uL (150-450)
[2025-05-04 14:53] LABS: ALT/SGPT 42.0 U/L (7.0-40); AST/SGOT 29.0 U/L (<34); CALCIUM LEVEL 9.1 MG/DL (8.3-10.6); CARBON DIOXIDE LEVEL 25.0 MMOL/L (20-31); CHLORIDE LEVEL 105.0 MMOL/L (98-107); CK-MB VALUE MASS 1.8 NG/ML (<3.6); CREATININE FOR GFR 1.06 MG/DL (0.55-1.30); GLOMERULAR FILTRATION RATE 59.8 (>45); POTASSIUM SERUM 4.2 MMOL/L (3.5-5.1); SODIUM LEVEL 143.0 MMOL/L (136-145)
[2025-05-04 15:00] LABS: CPK CREATINE PHOSPHOKINASE 123.0 U/L (34-145); MB/CK RELATIVE INDEX 1.46 (< OR =4)
[2025-05-04 15:45] LABS: CK-MB VALUE MASS 1.5 NG/ML (<3.6); CPK CREATINE PHOSPHOKINASE 115.0 U/L (34-145); MB/CK RELATIVE INDEX 1.3 (< OR =4)
[2025-05-04 16:50] VITALS: BP 132/60; TEMP 97.1; O2SAT 97
== END 2025-05-04 17:06 | disposition home or self-care (01) ==
LOC: M ED 13:19 → EDBD 13:19 → M ED 17:06
DX: R19.7 Diarrhea, unspecified (principal); R53.1 Weakness; I45.10 Unspecified right bundle-branch block; F41.9 Anxiety disorder, unspecified; F32.9 Major depressive disorder, single episode, unspecified; F17.200 Nicotine dependence, unspecified, uncomplicated; Z79.02 Long term (current) use of antithrombotics/antiplatelets; Z79.4 Long term (current) use of insulin; Z79.899 Other long term (current) drug therapy; Z87.442 Personal history of urinary calculi

== ENCOUNTER → 2025-07-22 | Outpatient (CLI) | payer OTHER ==
[~2025-07-22] MED LIST changes: -IBUP-1022 PO; +IBUP600T42 PO
== END ==
LOC: M RAD 11:22
PROVIDERS: ATTEND Family Medicine Addiction Medicine
DX: M54.40 Lumbago with sciatica, unspecified side (principal); M47.816 Spondylosis without myelopathy or radiculopathy, lumbar region; M47.817 Spondylosis without myelopathy or radiculopathy, lumbosacral region